=== PATIENT | male | born 1995 | race Two or more races ===

== ENCOUNTER 2020-03-14 13:06 | Emergency (ER) | payer OTHER ==
[~2020-03-14] VITALS: Ht 180.3 cm; Wt 49.9 kg
--- NOTE | 2020-03-14 13:15 | NUR ---
ED Nurse Note: RN asked patient to get into hospital gown and patient refused. Patient states he feels cold. He was wearing shor sleeve T Shirt. RN offered warm blanket, but patient refused to get into gown. Patient arrived here with wheelchair.
--- NOTE | 2020-03-14 13:30 | NUR ---
ED Nurse Note: RN attempted to insert f/c as ordered using 16Fr coude and regular, but RN unable to place it at this time. No bleeding from penile area noted. Jasper Yee. notfied.
--- NOTE | 2020-03-14 13:35 | NUR ---
ED Nurse Note: RN notified Jasper Yee that patient has split urethral opening with swollen, reddened bilateral scortum. Patient states he had catheter before but does not know what happened to it. Patient unable to urinate since last night and called 911. Patient states "I am not sick. I just need catheter" Patient awake, alert, oriented x 4. Regular, unlabored breathing noted.
[2020-03-14] MEDS ORDERED: Omnipaque-300 100ml vial INJ PRN (13:45)
--- NOTE | 2020-03-14 13:58 | Emergency Room Report ---
History of Present Illness General Chief Complaint: Abdominal Pain Source: Patient Present Illness HPI 25 YO Male presents to the ED c/o inability to urinate with 10/10 in severity lower abdominal pain with associated vomiting since this am. Pt. reports being incontinent due to hx of being paraplegic from waist down for unknown amount of time. Pt. poorly cooperative and "doesn't know" a lot of his medical history or ability to describe his current symptoms today. He reports having testicular swelling and pain, he denies penile d/c. Pt. reports having a cyst that required surgery an unknown amount of time ago in the testicle area. Pt. reports his symptoms never resolved. Pt. denies fevers or chills. He denies use of Vogt catheter and reports wearing adult diapers. ROS and HPI are limited due to poor pt. knowledge and cooperation. Allergies: Coded Allergies: No Known Allergies (Unverified , 03/14/20) COVID-19 Screening Contact w/high risk pt: No Experienced COVID-19 symptoms?: No COVID-19 Testing performed [facility] NURSE: Yes COVID-19 Screening: Negative COVID-19 COVID-19 Testing Source: 3 weeks ago Patient History Past Medical History: see triage record Past Surgical History: none Pertinent Family History: none Reviewed Nursing Documentation: PMH: Agreed; PSxH: Agreed Nursing Documentation-PMH Past Medical History: No History, Except For Review of Systems All Other Systems: limited - pt. with pmhx knowledge deficit and poor cooperation Physical Exam Vital Signs Date Time Temp Pulse Resp B/P (MAP) Pulse Ox O2 Delivery O2 Flow Rate FiO2 03/14/20 13:08 100.0 111 16 106/70 (82) 99 Room Air Sp02 EP Interpretation: reviewed, normal General Appearance: alert, GCS 15, non-toxic, mild distress Head: normocephalic, atraumatic Eyes: bilateral eye normal inspection, bilateral eye PERRL ENT: hearing grossly normal, normal voice Neck: full range of motion Respiratory: chest non-tender, lungs clear, normal breath sounds, speaking full sentences Cardiovascular #1: regular rate, rhythm Gastrointestinal: normal bowel sounds, soft, no peritonitis, tenderness - Midline lower abdomen with palpable fullness in the region of the urinary bladder, Rectal: deferred Genitourinary: no CVA tenderness, other - dc visualized from the urethra. Testicles are swollen and erythematous. NO lesions, sores/ blisters. NO swollen tender LAD. cremasteric reflex difficult to assess as pt. is paralyzed from waist down and can only sit. negative phrens sign. Musculoskeletal: back normal, normal range of motion, non-tender Neurologic: alert, oriented x3, sensory intact, responsive, speech normal, other - paralysis from waist down with visible muscle atrophy bilaterally of the lower extremities. Psychiatric: judgement/insight normal, other - Pt. is verbally abusive to staff. He is easily angered. Poorly cooperative in answering questions. Demanding with his expectations and treatments rendered. Skin: no rash Medical Decision Making PA Attestation Dr. Yee is my supervising Physician whom patient management has been discussed with. Diagnostic Impression: Primary Impression: Acute urinary obstruction Additional Impressions: Complicated urinary tract infection Leukocytosis Qualified Codes: D72.829 - Elevated white blood cell count, unspecified ER Course 25 YO Male presents to the ED c/o inability to urinate with 10/10 in severity lower abdominal pain with associated vomiting since this am. Pt. reports being incontinent due to hx of being paraplegic from waist down for unknown amount of time. Pt. poorly cooperative and "doesn't know" a lot of his medical history or ability to describe his current symptoms today. He reports having testicular swelling and pain, he denies penile d/c. Pt. reports having a cyst that required surgery an unknown amount of time ago in the testicle area. Pt. reports his symptoms never resolved. Pt. denies fevers or chills. He denies use of Vogt catheter and reports wearing adult diapers. ROS and HPI are limited due to poor pt. knowledge and cooperation. Ddx considered but are not limited to Diverticulitis, acute appendicitis, diarrhea,UC, PUD, GE, pancreatitis, gallstone, urinary obstruction, testicular torsion, STI, prostatitis or BPH just to name a few Vital signs: PT. TACHYCARDIC otherwise VS are WNL, pt. is afebrile H&PE are most consistent with possible urosepsis secondary to urinary obstruction. Pt. has an anatomically challenged urethra and multiple attempts are unsuccessful in Vogt placement. ORDERS: CBC: Severe leukocytosis WBC 22.5 -CMP: unremarkable -Lipase: 51 -lactic Acid: 1.9 UA: --unable to obtain urine. RN unable to insert Vogt catheters of various sized. Unsuccessful attempts at obtaining urine and relieving bladder. Pt. was very demanding that can insert the Vogt himself. Pt. failed at self catheterization. Urologist consulted Pt. needs to be admitted. -EKG: Pt. refuses -CT Abdomen and Pelvis w. Contrast: Pt. Refuses -Testicular US: ED INTERVENTIONS: -- 30cc/kg bolus of NS IV -- Zosyn IV - Tylenol PO -Consult : Urology. Dr. Duval was notified. DISPOSITION: Pt. demands to leave AMA multiple times. - At this time the patient is requesting to leave AGAINST MEDICAL ADVICE. I believe that this patient has the capacity to make decisions on his own. I discussed with the patient the risks of leaving AMA. Some of these risks include delay in diagnosis and treatment, as well as worsening of symptoms, organ damage, and permanent disability or even . After discussing these risks with the patient and the severity of his current condition with likelyhood of severe sepsis or ,he continues to express his want and intentions to leave AGAINST MEDICAL ADVICE. I encouraged the patient to return at any time, and that he will be welcome here in the emergency department to continue medical management. PT. called a family member and had them come pick him up. Labs Test 03/14/20 13:40 White Blood Count 22.5 K/UL (4.8-10.8) Red Blood Count 5.21 M/UL (4.70-6.10) Hemoglobin 14.1 G/DL (14.2-18.0) Hematocrit 43.3 % (42.0-52.0) Mean Corpuscular Volume 83 FL (80-99) Mean Corpuscular Hemoglobin 27.1 PG (27.0-31.0) Mean Corpuscular Hemoglobin Concent 32.6 G/DL (32.0-36.0) Red Cell Distribution Width 16.0 % (11.6-14.8) Platelet Count 291 K/UL (150-450) Mean Platelet Volume 7.5 FL (6.5-10.1) Neutrophils (%) (Auto) % (45.0-75.0) Lymphocytes (%) (Auto) % (20.0-45.0) Monocytes (%) (Auto) % (1.0-10.0) Eosinophils (%) (Auto) % (0.0-3.0) Basophils (%) (Auto) % (0.0-2.0) Differential Total Cells Counted 100 Neutrophils % (Manual) 68 % (45-75) Lymphocytes % (Manual) 14 % (20-45) Monocytes % (Manual) 10 % (1-10) Eosinophils % (Manual) 1 % (0-3) Basophils % (Manual) 1 % (0-2) Band Neutrophils 6 % (0-8) Platelet Estimate Adequate Platelet Morphology Normal Anisocytosis 1+ Sodium Level 138 MMOL/L (136-145) Potassium Level 3.9 MMOL/L (3.5-5.1) Chloride Level 102 MMOL/L (98-107) Carbon Dioxide Level 22 MMOL/L (21-32) Anion Gap 14 mmol/L (5-15) Blood Urea Nitrogen 12 mg/dL (7-18) Creatinine 1.0 MG/DL (0.55-1.30) Estimat Glomerular Filtration Rate > 60 mL/min (>60) Glucose Level 112 MG/DL (74-106) Lactic Acid Level 1.90 mmol/L (0.4-2.0) Calcium Level 9.4 MG/DL (8.5-10.1) Total Bilirubin 1.2 MG/DL (0.2-1.0) Direct Bilirubin 0.2 MG/DL (0.0-0.3) Aspartate Amino Transf (AST/SGOT) 15 U/L (15-37) Alanine Aminotransferase (ALT/SGPT) 15 U/L (12-78) Alkaline Phosphatase 118 U/L (46-116) Total Creatine Kinase 369 U/L (26-308) Total Protein 8.6 G/DL (6.4-8.2) Albumin 3.5 G/DL (3.4-5.0) Globulin 5.1 g/dL Albumin/Globulin Ratio 0.7 (1.0-2.7) Lipase 52 U/L (73-393) CT/MRI/US Diagnostic Results CT/MRI/US Diagnostic Results : Imaging Test Ordered: US testicular Impression " small right hydrocele and moderate left hydrocele, No acute abnormality of the testes or epididymides. "-Per official radiology report- Please see report for specific details. Last Vital Signs Date Time Temp Pulse Resp B/P (MAP) Pulse Ox O2 Delivery O2 Flow Rate FiO2 03/14/20 13:08 100.0 111 16 106/70 (82) 99 Room Air Disposition: AGAINST MEDICAL ADVICE Condition: Serious - PT. is severly sick, multiple providers attempt to reason pt. into staying. Scripts Ciprofloxacin Hcl* (CIPROFLOXACIN HCL*) 500 Mg Tablet 500 MG ORAL EVERY 12 HOURS for 10 Days, #20 TAB 0 Refills Prov: Nakia Dyer 03/14/20 Nakia Dyer Mar 14, 2020 13:58
--- NOTE | 2020-03-14 14:14 | NUR ---
ED Nurse Note: Patient refused to wear mask.RN explained the importance of wearing mask for safety and patient states "you have mask on". Patient refused EKG/U/S of scortum. Shari Yee notified and came to talk to patient. Patient wants to self-catherize himself. Narcisa.Ricky ordered to provide supplies.
[2020-03-14 14:20] LABS: HEMATOCRIT 43.3 % (42.0-52.0); HEMOGLOBIN 14.1 G/DL (14.2-18.0); MEAN CORPUSCULAR VOLUME 83 FL (80-99); PLATELET COUNT 291 K/UL (150-450); RED BLOOD COUNT 5.21 M/UL (4.70-6.10)
[2020-03-14 14:28] LABS: ANION GAP 14 mmol/L (5-15); BLOOD UREA NITROGEN 12 mg/dL (7-18); CALCIUM 9.4 MG/DL (8.5-10.1); CARBON DIOXIDE 22 MMOL/L (21-32); CHLORIDE 102 MMOL/L (98-107); POTASSIUM 3.9 MMOL/L (3.5-5.1); SODIUM 138 MMOL/L (136-145)
[2020-03-14 14:30] LABS: WHITE BLOOD COUNT 22.5 K/UL (4.8-10.8)
--- NOTE | 2020-03-14 14:30 | NUR ---
ED Nurse Note: RN provided 16Fr loya catheter and patient attempted self-catheterization, but unsuccessful at this time. RN educated patient if he feels resistance he should stop as it can lead to trauma, increased swelling. Offered pain medication for abdominal pain, but patient refused and stating "I just need catheter' in loud voice, appears to be agitated"
[2020-03-14 14:32] VITALS: BP 113/67
[2020-03-14 14:44] LABS: ALANINE AMINOTRANSFERASE 15 U/L (12-78); ALBUMIN 3.5 G/DL (3.4-5.0); ALBUMIN/GLOBULIN RATIO 0.7 (1.0-2.7); ALKALINE PHOSPHATASE 118 U/L (46-116); ASPARTATE AMINO TRANSFERASE 15 U/L (15-37); BILIRUBIN,TOTAL 1.2 MG/DL (0.2-1.0); CREATINE KINASE 369 U/L (26-308)
[2020-03-14 14:45] LABS: BILIRUBIN,DIRECT 0.2 MG/DL (0.0-0.3)
--- NOTE | 2020-03-14 14:45 | NUR ---
ED Nurse Note: Patient attempted to leave facility with IV. Security called and came to bedside. Addendum: 03/14/20 at 1449 by ADRIENNE Jasper Yee notified. Patient states "You guys are taking too long. I am thristy"
--- NOTE | 2020-03-14 14:58 | NUR ---
ED Nurse Note: Patient agreed to have u/s exam. U/S tech at bedside. Patient still refusing EKG at this time. Addendum: 03/14/20 at 1902 by ADRIENNE Patient also refused 2nd blood culture collection. RN explained the necessity of obtaining blood culture , but Patient states 'I need catheter now' in loud voice. Reassured patient. Provided comfort mesures (pillows, blankets). RN given apple juice after confirming with P.A.
[2020-03-14] MEDS ORDERED: MULTI-VITAMIN1 EACH PO (15:20)
[2020-03-14] MEDS ORDERED: NALTREXONE HCL50 MG PO (15:20)
[2020-03-14] MEDS ORDERED: ZYPREXA10 MG ORAL (15:20)
[2020-03-14] MEDS ORDERED: DEPAKOTE ER500 MG ORAL (15:20)
[2020-03-14] MEDS ORDERED: MELATONIN3 M1 ORAL (15:20)
--- NOTE | 2020-03-14 15:40 | NUR ---
ED Nurse Note: Patient refused CT scan. RN asked patient if this RN talk to mom/patient about his condition. Patient states mom does not want to talk to this RN. They were talking on his cell phone in lithuanian earlier.
[2020-03-14] MEDS ORDERED: Piperacillin/Tazobactam 2.25 GM in NS 110 ML IVPB ONE (15:45)
--- NOTE | 2020-03-14 15:46 | NUR ---
Note undone in EDM - 03/14/20 at 1907 by ADRIENNE ED Nurse Note: Patient attempted to self-catherize and bleeding from penile area noted. Patient want to leave the hopsital as he did not get urinary catheter. RN explained that RN attempted to insert urinary catheter twice and unable to establish it at this time. P.A. also aware. Patient threatened this RN that "I gonna pulls out IV. I don't want to be here.' RN explained the infection and patient states 'I don't care. Le me " RN asked for family information, but he does not provide any information. RN called facility and does not have any family information and leather case finisher not available.
--- NOTE | 2020-03-14 15:47 | NUR ---
ED Nurse Note: Patient attempted to do self-catheterization and bleeding from penile area noted. Patient wants to leave the hopsital as he did not get urinary catheter. RN explained that RN attempted to insert urinary catheter twice and unable to establish it at this time. P.A. also aware. Patient threatened this RN that "I gonna pulls out IV. I don't want to be here.' RN explained the infection and patient states 'I don't care." RN asked for family information, but he does not provide any information. RN called facility and talked to Moises and he does not have any family information and rn case manager hospice not available. Addendum: 03/14/20 at 1909 by ADRIENNE Patient attempted self-catherization with size 14Fr.
--- NOTE | 2020-03-14 15:52 | Diagnostic Imaging Report ---
EXAM: US Scrotum CLINICAL HISTORY: PAIN TECHNIQUE: Real-time ultrasound of the scrotum with color Doppler and image documentation. COMPARISON: None FINDINGS: Right testicle: Right testicle measures 4.0 x 3.1 x 1.5 cm. No focal lesion. No torsion. Left testicle: Left testicle measures 3.3 x 3.3 x 1.9 cm. No focal lesion. No torsion. Epididymides: Unremarkable. Scrotum: Small right hydrocele. Moderate left hydrocele. No varicocele. IMPRESSION: 1. Small right hydrocele and moderate left hydrocele. 2. No acute abnormality of the testes or epididymides.
--- NOTE | 2020-03-14 15:55 | NUR ---
ED Nurse Note: Shari Yee came to bedside and talking to patient. Addendum: 03/16/20 at 0720 by ADRIENNE ED Nurse Note: late entry for 03/14/1555- Shari Yee notified that patient refused CT scan. Shariand RN explained/discussed the importancte of CT scan for abdominal pain, but patient refused. Patient remained upset. Patient has been informed about the possible consequences of his decision including delaying in treatment and . Patient remained awake, alert, oriented x4.
--- NOTE | 2020-03-14 16:00 | NUR ---
ED Nurse Note: Dr. Luna came to bedside and talked to patient about his condition.
--- NOTE | 2020-03-14 16:05 | NUR ---
ED Nurse Note: Patient agreed to receive IV antibiotics and fluids at this tme. RN administered medication via left AC. IV remained intact.
[2020-03-14] MEDS ORDERED: CIPROFLOXACIN500 M2 ORAL (16:11)
--- NOTE | 2020-03-14 16:25 | NUR ---
ED Nurse Note: IV alarmed and went to patient's room. RN found patient in wheelchair with all his belongings, trying to leave @ 1620. Patient reported he lowered the sided rails and moved himself in wheelchair. Patient states "I don't want to wait. I don't want to stay here. I am leaving" RN attempted to talk to patient the importance of receiving treatment and told patient of possible risks and consequences of his leaving the hospital with dysuria and infection. Patient wanted this RN to try to insert loya cather one more time and RN attempted to insert loya catheter, coude 18Fr with patient's permission, but unsuccessful at this time. Patient tolerated the procedure without pain. No bleeding from urethral opening noted. RN removed IV from left arm per patient's request and cather remained intact. Applied clean, dry dressing.
[2020-03-14 16:42] VITALS: BP 132/74
--- NOTE | 2020-03-14 16:42 | NUR ---
ED Nurse Note: RN talked to patient again and informed him that urologist will see him for loya catheter insertion and if he is willing to stay and wait. RN took VS and Dr. Luna notified of temperature.
[2020-03-14] MEDS ORDERED: Acetaminophen 500mg (ES) tab ORAL ONE (16:45)
--- NOTE | 2020-03-14 16:55 | NUR ---
RN discussed s/s of worsening infection. D/C instruction and prescription given to patient.
--- NOTE | 2020-03-14 16:55 | NUR ---
Patient was awake, alert, oriented x 4.
--- NOTE | 2020-03-14 16:55 | NUR ---
ED Nurse Note: Erica RN informed this RN that patient found leaving the emergency room in wheelchair. RN found patient in front of the lobby. Patient states "I don't want to wait, takng too long" Per patient, patient contacted his mom. Her boyfriend (Dwain Duffy) here taking patient back to boarding care. Shari Yee notified patient leaving the hospital against medical advice. Patient informed again that patient has serious infection and leaving the hospital against medical advice will cause risk of serious complication, including . Patient verbalized understanding of it. Patient is leaving the hospital with Mr. Duffy with all his belongings.
--- NOTE | 2020-03-14 16:56 | NUR ---
ED Nurse Note: Patient signed AMA form and filed in chart.
== END 2020-03-14 16:55 | disposition left against medical advice (07) ==
LOC: EDBD → EMR 13:20
DX: N13.9 Obstructive and reflux uropathy, unspecified (principal); N39.0 Urinary tract infection, site not specified; D72.829 Elevated white blood cell count, unspecified; N43.3 Hydrocele, unspecified; G83.9 Paralytic syndrome, unspecified
CPT/HCPCS: 36415; 76870; 80053; 82248; 82550; 83605; 83690; 85007; 85025; 87040; 96361; 96365; 96375; J2405; J2543; Z7502; 99284

== ENCOUNTER 2020-03-15 07:20 | Emergency (ER) | payer OTHER ==
[~2020-03-15] VITALS: Ht 172.7 cm; Wt 68.0 kg
[~2020-03-15 07:20] MED LIST: CIPROFLOXACIN500 M2 ORAL; DEPAKOTE ER500 MG ORAL; MELATONIN3 M1 ORAL; MULTI-VITAMIN1 EACH PO; NALTREXONE HCL50 MG PO; ZYPREXA10 MG ORAL
[2020-03-15 07:30] VITALS: BP 125/79
[2020-03-15] MEDS ORDERED: Cefepime HCl 1 GM in D5W 55 ML IVPB ONE (07:45)
--- NOTE | 2020-03-15 07:54 | Emergency Room Report ---
History of Present Illness General Chief Complaint: Abdominal Pain Source: Patient Present Illness HPI 25-year-old male with a history of paraplegia here with lower abdominal pain and scrotal and penile swelling. Patient was here yesterday for the same complaints. He was found to have an acute urinary obstruction. Multiple attempts at catheterization were unsuccessful. Patient tried self catheterizations and was also unsuccessful. Patient was found to have a market leukocytosis as well. Urology was called for possible placement of a suprapubic catheter. However the patient became very ornery and angry and began to become verbally abusive to staff and then signed out AGAINST MEDICAL ADVICE. He was given a prescription for ciprofloxacin which he says he did not fill. Patient said yesterday that he was going to another hospital. However he went home and says that the swelling in his testicles and penis became more severe and the patient began having worsening lower abdominal pain. Has not been able to urinate in several days. Says he has had this before and is usually able to self catheterize however has been unsuccessful. Denies headaches, vision changes, fevers, chills, chest pain, palpitation, shortness of breath, back pain, other abdominal pain, diarrhea. Has felt nauseous and vomited yesterday but not today. Yesterday the patient received a testicular ultrasound study which showed bilateral hydroceles but otherwise unremarkable Allergies: Coded Allergies: No Known Allergies (Unverified , 03/14/20) COVID-19 Screening Contact w/high risk pt: No Experienced COVID-19 symptoms?: No COVID-19 Testing performed CLERICAL ASSISTANT: No Nursing Documentation-[facility] Past Medical History: No History, Except For Review of Systems All Other Systems: negative except mentioned in HPI Physical Exam Vital Signs Date Time Temp Pulse Resp B/P (MAP) Pulse Ox O2 Delivery O2 Flow Rate FiO2 03/15/20 07:16 97.2 72 18 134/86 (102) 98 Room Air Sp02 EP Interpretation: reviewed, normal General Appearance: no apparent distress, alert, GCS 15, non-toxic Head: normocephalic, atraumatic Eyes: bilateral eye normal inspection, bilateral eye PERRL ENT: hearing grossly normal, normal pharynx, no angioedema, normal voice Neck: full range of motion, supple/symm/no masses Respiratory: chest non-tender, lungs clear, normal breath sounds, speaking full sentences Cardiovascular #1: regular rate, rhythm, no edema Cardiovascular #2: 2+ carotid (R), 2+ carotid (L), 2+ radial (R), 2+ radial (L) , 2+ dorsalis pedis (R), 2+ dorsalis pedis (L) Gastrointestinal: normal bowel sounds, non-distended, no guarding, no rebound, other - Lower abdominal and suprapubic distention and mild tenderness on palpation Rectal: deferred Genitourinary: no CVA tenderness, other - Market testicular swelling bilaterally more prominent on the left with skin weeping. Edema of the penis diffusely Musculoskeletal: back normal, calf tenderness, other - Chronic paraplegic with lower extremity muscle wasting Neurologic: alert, motor strength/tone normal, oriented x3, sensory intact, responsive, speech normal Psychiatric: judgement/insight normal, memory normal, mood/affect normal, no suicidal/homicidal ideation Reflexes: 3+ bicep (R), 3+ bicep (L), 3+ tricep (R), 3+ tricep (L), 3+ knee (R) , 3+ knee (L) Lymphatic: no adenopathy Medical Decision Making Diagnostic Impression: Primary Impression: Sepsis Additional Impressions: Urinary retention Urethral fistula ER Course EXAM: XR Chest, 1 View CLINICAL HISTORY: CP TECHNIQUE: Frontal view of the chest. COMPARISON: No relevant prior studies available. FINDINGS: Lungs: Hypoventilatory lungs. Bibasilar lung atelectasis. Lungs otherwise clear. Pleural space: Unremarkable. No pneumothorax. Heart: Unremarkable. No cardiomegaly. Mediastinum: Unremarkable. Bones/joints: Unremarkable. Upper abdomen: IVC filter. IMPRESSION: Hypoventilatory lungs. Bibasilar lung atelectasis. Lungs otherwise clear. Total critical care time: Approximately 45 minutes Due to a high probability of clinically significant, life threatening deterioration, the patient required the highest level of preparedness to intervene emergently and I personally spent this critical care time directly and personally managing the patient. This critical care time included obtaining a history, examining the patient, pulse oximetry, ordering and reviewing studies , ordering treatments, evaluating response to treatment and updating management plan as needed, frequent reassessment and discussion with other providers as well as arranging for ultimate disposition. This critical to care time was performed to assess and manage the high probability of life-threatening deterioration that could result in multiorgan failure. This critical care time is separate from the separately billable procedures and treating other patients. 25-year-old male here with lower abdominal pain. Patient had a fever on arrival and received Tylenol. He received 30 cc/kg of a fluid bolus on arrival as well. Blood cultures obtained. However urine sample was not able to be obtained due to inability to pass catheters. CT abdomen pelvis revealed possible fistula from the prostatic urethra draining to the scrotum. Attempts to reach the on-call urologist many times were unsuccessful over the course of several hours. I spoke to the admitting team here in the [facility] who agreed that the patient will need a complex urologic procedure performed. Eventually we were able to speak to [facility] who will accept the patient with an ER to ER transfer. Blood cultures obtained. Patient received cefepime in the emergency department. He remained hemodynamically stable and received several doses of pain medication with good resolution of his pain. Patient to be transferred. Signed out to oncoming physician. Last Vital Signs Date Time Temp Pulse Resp B/P (MAP) Pulse Ox O2 Delivery O2 Flow Rate FiO2 03/15/20 07:16 97.2 72 18 134/86 (102) 98 Room Air Wilbert Knapp M.D. Mar 15, 2020 07:54
[2020-03-15] MEDS ORDERED: Acetaminophen 500mg (ES) tab ORAL ONE (08:00)
[2020-03-15] MEDS ORDERED: Omnipaque-300 100ml vial INJ PRN (08:15)
[2020-03-15 08:18] LABS: HEMATOCRIT 41.8 % (42.0-52.0); HEMOGLOBIN 14.2 G/DL (14.2-18.0); MEAN CORPUSCULAR VOLUME 81 FL (80-99); PLATELET COUNT 248 K/UL (150-450); RED BLOOD COUNT 5.15 M/UL (4.70-6.10); RED CELL DISTRIBUTION WIDTH 15.7 % (11.6-14.8); WHITE BLOOD COUNT 12.4 K/UL (4.8-10.8)
[2020-03-15 08:26] LABS: ANION GAP 14 mmol/L (5-15); BLOOD UREA NITROGEN 26 mg/dL (7-18); CALCIUM 8.8 MG/DL (8.5-10.1); CARBON DIOXIDE 21 MMOL/L (21-32); CHLORIDE 99 MMOL/L (98-107); CREATININE 2.8 MG/DL (0.55-1.30); POTASSIUM 3.6 MMOL/L (3.5-5.1); SODIUM 134 MMOL/L (136-145)
[2020-03-15] MEDS ORDERED: Morphine Sulfate 4mg/ml Inj (IV USE ONLY) IVP ONE ×3 (08:30→14:45)
[2020-03-15] MEDS ORDERED: Acetaminophen 650 MG SUPP RECTAL ONE (08:30)
[2020-03-15] MEDS ORDERED: Lidocaine HCl 2% Jelly 6ml Tube TOPIC ONE ×2 (08:36→08:45)
[2020-03-15 08:40] LABS: ALANINE AMINOTRANSFERASE 20 U/L (12-78); ALBUMIN 3.2 G/DL (3.4-5.0); ALBUMIN/GLOBULIN RATIO 0.6 (1.0-2.7); ALKALINE PHOSPHATASE 111 U/L (46-116); ASPARTATE AMINO TRANSFERASE 26 U/L (15-37); BILIRUBIN,TOTAL 1.4 MG/DL (0.2-1.0); CKMB 1.9 NG/ML (0.0-3.6)
[2020-03-15 08:41] LABS: BILIRUBIN,DIRECT 0.3 MG/DL (0.0-0.3)
--- NOTE | 2020-03-15 09:04 | Diagnostic Imaging Report ---
EXAM: XR Chest, 1 View CLINICAL HISTORY: CP TECHNIQUE: Frontal view of the chest. COMPARISON: No relevant prior studies available. FINDINGS: Lungs: Hypoventilatory lungs. Bibasilar lung atelectasis. Lungs otherwise clear. Pleural space: Unremarkable. No pneumothorax. Heart: Unremarkable. No cardiomegaly. Mediastinum: Unremarkable. Bones/joints: Unremarkable. Upper abdomen: IVC filter. IMPRESSION: Hypoventilatory lungs. Bibasilar lung atelectasis. Lungs otherwise clear.
[2020-03-15 09:30] VITALS: BP 128/72
--- NOTE | 2020-03-15 11:17 | Diagnostic Imaging Report ---
EXAM: CT Chest Without Intravenous Contrast CLINICAL HISTORY: PAIN TECHNIQUE: Axial computed tomography images of the chest without intravenous contrast. CTDI is 5.6 mGy and DLP is 467.1 mGy-cm. One or more of the following dose reduction techniques were used: automated exposure control, adjustment of the mA and/or kV according to patient size, use of iterative reconstruction technique. COMPARISON: Chest x-ray today FINDINGS: Lungs: Linear atelectasis at the lung bases. Lungs otherwise clear. Pleural space: Unremarkable. No pneumothorax. No significant effusion. Heart: Unremarkable. No cardiomegaly. No significant pericardial effusion. Bones/joints: Unremarkable. No acute fracture. No dislocation. Soft tissues: Unremarkable. Vasculature: Unremarkable. No thoracic aortic aneurysm. Lymph nodes: Unremarkable. No enlarged lymph nodes. IMPRESSION: No acute findings in the chest. EXAM: CT Abdomen and Pelvis Without Intravenous Contrast CLINICAL HISTORY: PAIN TECHNIQUE: Axial computed tomography images of the abdomen and pelvis without intravenous contrast. CTDI is 5.6 mGy and DLP is 467.1 mGy-cm. One or more of the following dose reduction techniques were used: automated exposure control, adjustment of the mA and/or kV according to patient size, use of iterative reconstruction technique. COMPARISON: No relevant prior studies available. FINDINGS: Lung bases: Unremarkable. No mass. No consolidation. ABDOMEN: Liver: Unremarkable. Gallbladder and bile ducts: Unremarkable. No calcified stones. No ductal dilation. Pancreas: Unremarkable. No ductal dilation. Spleen: Unremarkable. No splenomegaly. Adrenals: Unremarkable. No mass. Kidneys and ureters: Mild bilateral hydronephrosis due to overly distended urinary bladder. Stomach and bowel: Unremarkable. No obstruction. No mucosal thickening. PELVIS: Appendix: Normal appendix. Bladder: [place] distended urinary bladder.See below. Reproductive: There is a dilated prostatic and proximal penile urethra. There is large fluid collection at the base of the penis extending into the left scrotum that appears to connect to the proximal urethra, worrisome for fistula. Soft tissue induration of the scrotum and bilateral groin and anterior pelvic wall. ABDOMEN and PELVIS: Intraperitoneal space: Unremarkable. No free air. No significant fluid collection. Bones/joints: Dystrophic calcification left ischial tuberosity. Fusion of bilateral SI joints. No acute fracture. No dislocation. Soft tissues: Left buttocks subcutaneous ulceration extending to the ischial tuberosity. 4.0 x 5.7 cm soft tissue densities/phlegmonous changes at the ischial tuberosity. Right lateral abdominal wall subcutaneous metallic fragment. Vasculature: IVC filter. No abdominal aortic aneurysm. Lymph nodes: Unremarkable. No enlarged lymph nodes. IMPRESSION: 1. There is a dilated prostatic and proximal penile urethra. There is large fluid collection at the base of the penis extending into the left scrotum that appears to connect to the proximal urethra, worrisome for fistula. Soft tissue induration of the scrotum and bilateral groin and anterior pelvic wall. 2. Mild bilateral hydronephrosis due to overly distended urinary bladder. 3. Left buttocks subcutaneous ulceration extending to the ischial tuberosity. 4.0 x 5.7 cm soft tissue densities/phlegmonous changes at the ischial tuberosity. 4. Dystrophic calcification left ischial tuberosity. Cannot exclude chronic osteomyelitis. 5. Right lateral abdominal wall subcutaneous metallic fragment. <MYCVCSECTION> Communications: 03/15/20 11:14 Call Doctor Regarding Above results, called Aria PITTS on 03/15 11:13 (-07:00)
[2020-03-15 11:30] VITALS: BP 129/79
[2020-03-15 13:44] VITALS: BP 131/74
[2020-03-15] MEDS ORDERED: Morphine Sulfate 4mg/ml Inj (IV USE ONLY) ONE (14:35)
[2020-03-15 18:20] VITALS: BP 127/79
== END 2020-03-15 18:20 | disposition home or self-care (01) ==
LOC: EDBD 07:20 → EMR 08:04 → EDBD 08:04 → EMR 18:20
DX: A41.9 Sepsis, unspecified organism (principal); R33.9 Retention of urine, unspecified; N36.0 Urethral fistula; D72.829 Elevated white blood cell count, unspecified; J98.11 Atelectasis
CPT/HCPCS: 36415; 71045; 71250; 74176; 74177; 80053; 82248; 82553; 83605; 85007; 85025; 87040; 96361; 96365; 96375; 96376; J0692; J2270; J2405; J7030; Q9965; S0028; U0002; Z7502; 99291

== ENCOUNTER 2020-03-21 19:14 | Inpatient (IN) | payer OTHER ==
[~2020-03-21] VITALS: Ht 180.3 cm; Wt 61.3 kg
--- NOTE | 2020-03-21 18:55 | Emergency Room Report ---
History of Present Illness General Chief Complaint: Abdominal Pain Source: Patient Present Illness HPI Patient is a 25-year-old male with past medical history of paraplegia and neurogenic bladder s/p suprapubic indwelling catheter brought in by ambulance from [facility] for complaint of left lower quadrant abdominal pain, foul-smelling urine, and scrotal pain. He states that he has been treated with antibiotics for urinary tract infection over the past 1 week, however his symptoms are not improving. He noticed pus coming out of the left scrotal area which has not been getting better with the outpatient antibiotics. Denies fevers, chills, nausea, vomiting, diarrhea, melena, hematochezia, cough, chest pain or weakness The patient's symptoms were gradual onset, severity was moderate, duration since 7 days. Quality: Bulging Past medical history: Paraplegia, neurogenic bladder Past surgical history: Suprapubic indwelling catheter Smoking: Denies Alcohol use: Denies Drug use: Denies Review of systems: CONST: No fevers or chills, No night sweats PULMONARY: No productive cough, No shortness of breath CARDIAC: No chest pain, No palpitations GI: No vomiting, No diarrhea , No melena_or_BRBPR : No dysuria, No hematuria, No discharge NEURO: No new_focal_weakness_or_numbness, No confusion, No vision changes 14 point Review of Systems is otherwise negative except per HPI Physical Exam: GENERAL: Awake_alert_ nontoxic, no acute distress Spo2 98% on RA -normal EYES: Extraocular muscles are intact. Conjunctivae clear. Lids without swelling ENT: External nose and ear normal_in_appearance. Oropharynx clear. Head_ atraumatic, Moist_oral_mucosa NECK: No JVD. No meningismus. No thyromegaly. Supple. Trachea midline No petechia. No purpura. RESP: Normal respiratory effort. Symmetric rise. No stridor. Clear_to_ auscultation_No_rales_No_wheezes CARDIAC: Regular rate and regular rhytm. No_significant pedal edema. ABDOMEN: Soft. Mild left lower quadrant tenderness to palpation with undifferentiated mass. Non-peritoneal. Negative Ruffin's. Negative rebound. No CVA tenderness to palpation bilaterally. Indwelling suprapubic catheter. Ostomy is clean, dry, intact. No surrounding cellulitis or drainage. exam performed with RN dumpster driver at bedside There is weeping to the left scrotum with serosanguineous drainage. No palpable crepitus. MSK: Normal muscle tone, without rigidity. Extremities without asymmetric deformity or swelling. SKIN: Warm and dry. No visible cyanosis or pallor NEUROLOGIC: Alert, oriented x3. To the bilateral upper extremity. He is a paraplegic. Motor_and_sensation_grossly_intact 0 out of 5 strength bilateral lower extremity Psych: Normal mood and affect, normal judgment and insight - COORDINATION OF CARE Case was discussed with: Patient , Patient's Physician Any labs and imaging that were ordered were interpreted as part of the medical decision making: I did review previous medical records. CT scan from 03/15/2019 was notable for several complicated findings. There was a dilated prostatic and proximal penile urethra. There is a large fluid collection at the base of the penis extending into the left scrotum that appeared to connect to the proximal urethra worrisome for a fistula. Was also noted to have bilateral hydronephrosis and possible if she will tuberosity abscess/ulceration. Patient was transferred to [facility] for higher level of care. MEDICAL DECISION MAKING: Differential diagnosis includes sepsis / severe sepsis, scrotal cellulitis, nephrolithiasis, ureterolithiasis, pyelonephritis, diverticulitis, complicated UTI, pneumonia , viral syndrome, among others. Vitals show patient is afebrile. Stable blood pressure. Patient abdominal exam shows chronic suprapubic indwelling Loya catheter. The urine coming out of the bag is heavily sedimented. examination shows scrotal cellulitis. There is weeping of the left scrotal region that is concerning for abscess versus less likely Yamini's gangrene. There is no palpable crepitus on exam. He is hemodynamically stable at this point in time. No pain out of proportion, however physical examination is unreliable as patient is a paraplegic. UA shows positive bacteria, leukocytes, and heavy sediment. Labs shows leukocytosis of 15.5. It was 12.4 on the previous discharge. Pt also noted to be newly anemic. Hemoglobin today is 11.9. Hemoglobin last recorded at 14.2 earlier this week. He is also noted to have a thrombocytosis of 421. Creatinine today is better than it has been previously. It is 1.4. Previous creatinine on 03/15/2020 was 2.8. CXR shows no acute disease. CT abd/pelvis shows suprapubic bladder catheter noted with its tip in the distal right ureter causing right hydronephrosis and right hydroureter. Furthermore there are inflammatory changes about the lower anterior abdominal wall in the left lower quadrant that appear to be an abscess measuring 5.3 x 1.5. There is furthermore extensive inflammation surrounding the left hemiscrotum with a prominent abscess collection the size of 3.1 x 2.2 x 2.8 cm prominent abscess inferiorly. No subcutaneous emphysema suggestive of fourniere 's gangrene. US shows large scrotal abscess. Sepsis bundle initiated on arrival. Blood cultures, lactate drawn. Patient was given 30 cc/kg IV fluids by bolus. Empiric antibiotics were started including vancomycin, clindamycin, and Zosyn.. I also spoke with our Urology computer consultant, Dr. Adames who agrees to see and evaluate the patient. For now, recommends transfer to [facility] for higher level of care as he is their surgical patient. 2049: Attempted to call [facility] for higher level of care. ED is at capacity. 2054: Attempted to call [facility] for higher level of care. ED is at capacity. Pt informed of delay of care. Will continue to try for [facility] as this is where his procedure was performed. 2104: Attempted to call [facility] again for higher level of care. I spoke with Juli who has requested that we fax all labs, imaging, and notes. 2131: Patient is up and out of bed about to rip out his IVs. He is upset because he has been told that he cannot eat anything by mouth and his mother brought him [employer] which he cannot eat. I have spoken with his mother at bedside Donna ([phone]) and explained the severity of the situation. She spoke with patient who agrees to further treatment and transfer to facility for higher level of care. 2144: Spoke with Dr. Walt Salgado (Urology at [facility]) and discussed CT findings with him. He is very familiar with the patient. States that in regards to the suprapubic bladder catheter placement, that urology here should be able to handle the repositioning. Recommends deflating the balloon and pulling it back. Recommends general surgery VS IR for his abdominal wall abscess. Dr Salgado also states that unfortunately, [facility] cannot accept the patient at this time because they are at capacity. Recommends [facility] facilities for higher level of care. In the mean time, Dr Adames arrived bedside to I+D the L scrotal abscess and was successful. Does not feel that exam is consistent with fourniere's. He was also able to reposition the suprapubic loya. 2300: Spoke with [facility] transfer line who states they are at capacity. Care will be endorsed to the oncoming ER physician Dr. Wilbert Knapp pending possible transfer. - CRITICAL CARE STATEMENT - Critical care performed 75 minutes Time is exclusive of separately billable procedures. Time includes: direct patient care, patient reassessment, coordination of patient care, review of patient's medical records, medical consultation, family consultation regarding treatment decisions and documentation of patient care. Organ systems at risk: Cardiac / Circulatory / Skin / Allergies: Coded Allergies: No Known Allergies (Unverified , 03/14/20) COVID-19 Screening Contact w/high risk pt: No Experienced COVID-19 symptoms?: No COVID-19 Testing performed BRIDGE INSPECTOR: No Nursing Documentation-[facility] Past Medical History: No History, Except For History Of Psychiatric Problem: Yes - schizophrenia Physical Exam Vital Signs Date Time Temp Pulse Resp B/P (MAP) Pulse Ox O2 Delivery O2 Flow Rate FiO2 03/21/20 18:37 98.8 72 18 132/80 (97) 98 Room Air Sp02 EP Interpretation: reviewed, normal Medical Decision Making Diagnostic Impression: Primary Impression: Scrotal abscess Additional Impressions: Abdominal abscess Cellulitis of scrotum Complicated UTI (urinary tract infection) Fistula Paraplegia Hydronephrosis Hydroureter Suprapubic catheter dysfunction CKD (chronic kidney disease) Hydrocele EKG Diagnostic Results KARLEY Scribe Jared 12-lead EKG (interpreted by me) Time: 3 Indication: Rhythm analysis Tracing visualized and Interpreted by me. Rhythm: Normal sinus rhythm Rate: 95 bpm QTc: 444 Morphology: No_significant_ST_elevations_or_depressions, No STEMI Impression: Normal_sinus_rhythm_without_significant_abnormality Rhythm Strip Diag. Results Rhythm Strip Time: 20:13 EP Interpretation: yes Rate: 99 Rhythm: NSR, no PVC's, no ectopy Chest X-Ray Diagnostic Results Chest X-Ray Diagnostic Results : PA Scribe Text Chest X-Ray: Views: 1 view(s) Indication: Sepsis Findings: Normal heart size. Mediastinum normal. No infiltrate. Impression: NAD The X-ray(s) were independently viewed and interpreted contemporaneously Electronically signed by Manjula israel, CT/MRI/US Diagnostic Results CT/MRI/US Diagnostic Results : Impression CT Abdomen Pelvis w/Contrast EXAM: CT Abdomen and Pelvis With Intravenous Contrast CLINICAL HISTORY: ABSCESS TECHNIQUE: Axial computed tomography images of the abdomen and pelvis with intravenous contrast. CTDI is 9.80 mGy and DLP is 341.30 mGy-cm. One or more of the following dose reduction techniques were used: automated exposure control, adjustment of the mA and/or kV according to patient size, use of iterative reconstruction technique. COMPARISON: 03/15/2020. FINDINGS: Lung bases: Scarring versus atelectasis posterior medially at the right lung base. Heart: Heart is normal in size. Mediastinum: Small hiatal hernia. Probable distal esophagitis. ABDOMEN: Liver: Diffuse fatty infiltration of the liver is noted with fatty sparing about the round ligament. The liver and the spleen enhance uniformly. Gallbladder and bile ducts: The gallbladder is in a semi-contracted state. No calcified stones. No ductal dilation. Pancreas: See below. Spleen: See above. Adrenals: The adrenal glands, the head, body, tail of the pancreas are unremarkable per Kidneys and ureters: Both kidneys are shown to excrete contrast bilaterally, left kidney more so than the right kidney. Moderate right hydronephrosis. Right suprapubic bladder catheter is noted in place with tip located within the distal right ureter causing obstruction of the right ureter and right hydronephrosis. Left kidney is unremarkable without hydronephrosis. Stomach and bowel: Presumed ingested material in the stomach. Moderate quantity of stool throughout the colon. No evidence of bowel obstruction could No evidence of bowel obstruction. Diverticulosis without diverticulitis appeared PELVIS: Appendix: The appendix is seen on axial image 59 and is unremarkable. Bladder: Unremarkable. No mass. Reproductive: Diffuse wall thickening of the left scrotum. At the inferior aspect of the left scrotum there is suggestion of a 3.1 x 2.2 x 2.8 cm abscess collection. Clinical correlation is advised. ABDOMEN and PELVIS: Intraperitoneal space: Unremarkable. No free air. No significant fluid collection. Bones/joints: Mild to moderate osteoarthritic changes about the sacroiliac joints. Alignment of the thoracolumbar spine is unremarkable. The sacrum and coccyx are unremarkable. No acute fracture. Soft tissues: There is extensive stranding about the lower anterior abdominal wall particularly left of midline where there is a 5.3 x 1.5 cm subcutaneous fluid collection. Cellulitis and abscess collection cannot be excluded and clinical correlation is advised. Vasculature: IVC filter is noted in place. Flow is demonstrated within the celiac, SMA, the renal arteries, and ARMANI. No abdominal aortic aneurysm. Lymph nodes: Unremarkable. No enlarged lymph nodes. IMPRESSION: 1. There is a suprapubic bladder catheter noted in place with its tip located in the distal right ureter causing right hydronephrosis and right hydroureter. 2. Inflammatory changes about the lower anterior abdominal wall particularly left of midline with there appears to be an abscess collection. 3. Extensive inflammation surrounding the left hemiscrotum with an prominent abscess collection suggested inferiorly. Clinical correlation is advised. <MYCVCSECTION> Communications: 03/21/20 20:38 Call Doctor Regarding Above results, called NEGRA PITTS on 03/21 20:38 (-07:00) Dictated By: Uriel Altamirano M.D. US Testicular Scrotum EXAM: US Scrotum CLINICAL HISTORY: PAIN TECHNIQUE: Real-time ultrasound of the scrotum with color Doppler and image documentation. COMPARISON: 03/14/2020. FINDINGS: Right testicle: The right testicle measures 3.2 x 1.7 x 2.5 cm. No intrinsic testicular abnormalities. Flow within the testicles. No torsion. Left testicle: Left testicle measures 3.7 x 1.7 x 2.8 cm. Epididymides: Bilateral epididymides are unremarkable. Scrotum: Small right hydroceles. There is diffuse are scrotal wall thickening with intrascrotal fluid collection inferior to the penis in the area of the raphae septum. Increased vascularity is noted. Lymph nodes: Bilateral inguinal lymph nodes which appear prominent. Other findings: Findings are worrisome for abscess collection. Early Yamini's gangrene cannot be excluded. IMPRESSION: 1. Findings most suggestive of abscess collection within the scrotum posterior and inferior to the penis. Clinical correlation is advised to 2. Early Yamini's gangrene cannot be excluded. 3. Flow to both testicles noted. 4. No intrinsic testicular abnormality is noted. 5. Prominent inguinal lymph nodes. 6. Small right hydrocele. Reevaluation Time: 20:14 Last Vital Signs Date Time Temp Pulse Resp B/P (MAP) Pulse Ox O2 Delivery O2 Flow Rate FiO2 03/21/20 18:37 98.8 72 18 132/80 (97) 98 Room Air Status: improved Admit Decision Time: 22:00 Condition: Stable - Care signed out to Manjula Powers D.O. Mar 21, 2020 18:55
[~2020-03-21 19:14] MED LIST changes: +Clindamycin 600mg 50 ML IVPB ONE; +Omnipaque-300 100ml vial INJ PRN; +Piperacillin/Tazobactam 3.375 GM in NS 110 ML IVPB ONE; +Vancomycin 1 GM in NS 275 ML IV ONE
[2020-03-21 19:15] VITALS: BP 114/61
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
[2020-03-21 19:19] LABS: BILIRUBIN, URINE NEGATIVE (NEGATIVE); COLOR,URINE AMBER; GLUCOSE, URINE (UA) NEGATIVE (NEGATIVE); KETONES,URINE 1+ (NEGATIVE); LEUKOCYTE ESTERASE ,URINE 3+ (NEGATIVE); NITRITE,URINE NEGATIVE (NEGATIVE); PH,URINE 6 (4.5-8.0); PROTEIN,URINE 3+ (NEGATIVE); UROBILINOGEN,URINE NORMAL MG/DL (0.0-1.0)
[2020-03-21 19:20] LABS: BASOPHILS % (AUTO) 1.3 % (0.0-2.0); EOSINOPHILS % (AUTO) 1.5 % (0.0-3.0); HEMATOCRIT 35.1 % (42.0-52.0); HEMOGLOBIN 11.9 G/DL (14.2-18.0); LYMPHOCYTES % (AUTO) 23.3 % (20.0-45.0); MEAN CORPUSCULAR VOLUME 83 FL (80-99); MONOCYTES % (AUTO) 10.4 % (1.0-10.0); NEUTROPHILS % (AUTO) 63.6 % (45.0-75.0); PLATELET COUNT 421 K/UL (150-450); RED BLOOD COUNT 4.23 M/UL (4.70-6.10); RED CELL DISTRIBUTION WIDTH 16.8 % (11.6-14.8); WHITE BLOOD COUNT 15.5 K/UL (4.8-10.8)
[2020-03-21 19:21] LABS: APPEARANCE,URINE VERY CLOUDY
[2020-03-21 19:27] LABS: INR 1.2 (0.9-1.1)
[2020-03-21 19:35] LABS: ANION GAP 10 mmol/L (5-15); BLOOD UREA NITROGEN 16 mg/dL (7-18); CALCIUM 8.3 MG/DL (8.5-10.1); CARBON DIOXIDE 27 MMOL/L (21-32); CHLORIDE 105 MMOL/L (98-107); CREATININE 1.4 MG/DL (0.55-1.30); POTASSIUM 4.5 MMOL/L (3.5-5.1); SODIUM 141 MMOL/L (136-145)
[2020-03-21 19:47] LABS: ALANINE AMINOTRANSFERASE 31 U/L (12-78); ALBUMIN 2.7 G/DL (3.4-5.0); ALBUMIN/GLOBULIN RATIO 0.6 (1.0-2.7); ALKALINE PHOSPHATASE 98 U/L (46-116); ASPARTATE AMINO TRANSFERASE 16 U/L (15-37); BILIRUBIN,TOTAL 0.3 MG/DL (0.2-1.0); CKMB 0.8 NG/ML (0.0-3.6); PHOSPHORUS 4.5 MG/DL (2.5-4.9)
--- NOTE | 2020-03-21 19:50 | NUR ---
ED Nurse Note: Patient taken to CT.
--- NOTE | 2020-03-21 20:23 | Diagnostic Imaging Report ---
EXAM: XR Chest, 1 View CLINICAL HISTORY: COUGH TECHNIQUE: Frontal view of the chest. COMPARISON: 03/15/2020. FINDINGS: Lungs: The lungs are well aerated. No consolidative changes. Pleural space: No pleural effusions. No pneumothorax. Heart: Cardiomediastinal silhouette unremarkable. Mediastinum: See above. Bones/joints: Ribs are unremarkable. IMPRESSION: No active disease, unchanged.
--- NOTE | 2020-03-21 20:34 | Diagnostic Imaging Report ---
EXAM: CT Abdomen and Pelvis With Intravenous Contrast CLINICAL HISTORY: ABSCESS TECHNIQUE: Axial computed tomography images of the abdomen and pelvis with intravenous contrast. CTDI is 9.80 mGy and DLP is 341.30 mGy-cm. One or more of the following dose reduction techniques were used: automated exposure control, adjustment of the mA and/or kV according to patient size, use of iterative reconstruction technique. COMPARISON: 03/15/2020. FINDINGS: Lung bases: Scarring versus atelectasis posterior medially at the right lung base. Heart: Heart is normal in size. Mediastinum: Small hiatal hernia. Probable distal esophagitis. ABDOMEN: Liver: Diffuse fatty infiltration of the liver is noted with fatty sparing about the round ligament. The liver and the spleen enhance uniformly. Gallbladder and bile ducts: The gallbladder is in a semi-contracted state. No calcified stones. No ductal dilation. Pancreas: See below. Spleen: See above. Adrenals: The adrenal glands, the head, body, tail of the pancreas are unremarkable per Kidneys and ureters: Both kidneys are shown to excrete contrast bilaterally, left kidney more so than the right kidney. Moderate right hydronephrosis. Right suprapubic bladder catheter is noted in place with tip located within the distal right ureter causing obstruction of the right ureter and right hydronephrosis. Left kidney is unremarkable without hydronephrosis. Stomach and bowel: Presumed ingested material in the stomach. Moderate quantity of stool throughout the colon. No evidence of bowel obstruction could No evidence of bowel obstruction. Diverticulosis without diverticulitis appeared PELVIS: Appendix: The appendix is seen on axial image 59 and is unremarkable. Bladder: Unremarkable. No mass. Reproductive: Diffuse wall thickening of the left scrotum. At the inferior aspect of the left scrotum there is suggestion of a 3.1 x 2.2 x 2.8 cm abscess collection. Clinical correlation is advised. ABDOMEN and PELVIS: Intraperitoneal space: Unremarkable. No free air. No significant fluid collection. Bones/joints: Mild to moderate osteoarthritic changes about the sacroiliac joints. Alignment of the thoracolumbar spine is unremarkable. The sacrum and coccyx are unremarkable. No acute fracture. Soft tissues: There is extensive stranding about the lower anterior abdominal wall particularly left of midline where there is a 5.3 x 1.5 cm subcutaneous fluid collection. Cellulitis and abscess collection cannot be excluded and clinical correlation is advised. Vasculature: IVC filter is noted in place. Flow is demonstrated within the celiac, SMA, the renal arteries, and ARMANI. No abdominal aortic aneurysm. Lymph nodes: Unremarkable. No enlarged lymph nodes. IMPRESSION: 1. There is a suprapubic bladder catheter noted in place with its tip located in the distal right ureter causing right hydronephrosis and right hydroureter. 2. Inflammatory changes about the lower anterior abdominal wall particularly left of midline with there appears to be an abscess collection. 3. Extensive inflammation surrounding the left hemiscrotum with an prominent abscess collection suggested inferiorly. Clinical correlation is advised. <MYCVCSECTION> Communications: 03/21/20 20:38 Call Doctor Regarding Above results, called NEGRA PITTS on 03/21 20:38 (-07:00)
--- NOTE | 2020-03-21 21:00 | NUR ---
Face sheet,EKG,dictation and CT report faxed to [facility] and [facility] as requested.
[2020-03-21] MEDS ORDERED: Lidocaine 1% MPF 10mg/ml 5ml INJ ONE (21:30)
[2020-03-21] MEDS ORDERED: Lidocaine 2% Visc 15ml soln ORAL ONE (21:30)
--- NOTE | 2020-03-21 21:30 | NUR ---
ED Nurse Note: Patient became agitated when instructed he was NPO and could not eat the food his mother brought him. AMPARO bedside speaking with patient. Patient disconnected all tubing and awake overnight monitor leads himself. RN bedside attempting to calm and reassure patient and inform him why he is NPO. Patient placed himself in wheelchair and attempted to leave ED AMA. Patient, patient's mother, ERMD and RN spoke and patient informed of risks due to leaving AMA. Patient agreed to stay in the ED and patient escorted back to bed by tech. Patient placed back on awake overnight monitor. Safety measures met; will continue to monitor for change in condition.
--- NOTE | 2020-03-21 21:36 | Diagnostic Imaging Report ---
EXAM: US Scrotum CLINICAL HISTORY: PAIN TECHNIQUE: Real-time ultrasound of the scrotum with color Doppler and image documentation. COMPARISON: 03/14/2020. FINDINGS: Right testicle: The right testicle measures 3.2 x 1.7 x 2.5 cm. No intrinsic testicular abnormalities. Flow within the testicles. No torsion. Left testicle: Left testicle measures 3.7 x 1.7 x 2.8 cm. Epididymides: Bilateral epididymides are unremarkable. Scrotum: Small right hydroceles. There is diffuse are scrotal wall thickening with intrascrotal fluid collection inferior to the penis in the area of the raphae septum. Increased vascularity is noted. Lymph nodes: Bilateral inguinal lymph nodes which appear prominent. Other findings: Findings are worrisome for abscess collection. Early Yamini's gangrene cannot be excluded. IMPRESSION: 1. Findings most suggestive of abscess collection within the scrotum posterior and inferior to the penis. Clinical correlation is advised to 2. Early Yamini's gangrene cannot be excluded. 3. Flow to both testicles noted. 4. No intrinsic testicular abnormality is noted. 5. Prominent inguinal lymph nodes. 6. Small right hydrocele.
[2020-03-21] MEDS ORDERED: Morphine Sulfate 4mg/ml Inj (IV USE ONLY) IVP ONE (22:30)
--- NOTE | 2020-03-21 22:40 | NUR ---
ED Nurse Note: Urologist bedside for assessment of catheter and I&D procedure of scrotum; patient tolerated well. Will continue to monitor for change in condition. Patient is awake and alert. Incision cleaned and patient skin cleaned. Skin is clean/dry; new linens place on bed. Patient also repositioned. He is in no acute distress at this time.
--- NOTE | 2020-03-21 23:00 | NUR ---
ED Nurse Note: Patient is c/o pain S/P incision and drainage. Will carry out med order. New 16f suprapubic cath was placed by urologist.
--- NOTE | 2020-03-21 23:20 | NUR ---
ED Nurse Note: Significant clear fluid drainage and pus noted from scrotal incision.
--- NOTE | 2020-03-21 23:30 | NUR ---
ED Nurse Note: Patient became tachy. ERMD notified. Will continue to monitor.
[2020-03-21 23:33] VITALS: BP 138/53
--- NOTE | 2020-03-22 00:01 | Emergency Room Report ---
Physical Exam Vital Signs Date Time Temp Pulse Resp B/P (MAP) Pulse Ox O2 Delivery O2 Flow Rate FiO2 03/21/20 18:37 98.8 72 18 132/80 (97) 98 Room Air Medical Decision Making Diagnostic Impression: Primary Impression: Scrotal abscess Additional Impressions: Hydronephrosis Cellulitis of scrotum Suprapubic catheter dysfunction Paraplegia Complicated UTI (urinary tract infection) Fistula CKD (chronic kidney disease) Hydroureter Abdominal abscess Hydrocele ER Course I assumed care of this patient. He remained hemodynamically stable and in no acute distress in the emergency department. However at 1 point he suddenly became tachycardic at around 140 bpm. I assessed the patient and he was in no distress. Repeat EKG was performed EKG: Sinus rhythm, heart rate 112 bpm. No abnormal MT or QT intervals. Normal axis. No ectopy. No ST or T wave abnormalities Attempts were made to transfer the patient to [facility], [facility]. All of these were unsuccessful as these institutions either denied transfer or claim they had no beds. Patient was then accepted for admission here at this hospital. Admitted to telemetry. Last Vital Signs Date Time Temp Pulse Resp B/P (MAP) Pulse Ox O2 Delivery O2 Flow Rate FiO2 03/21/20 23:33 98.9 112 17 138/53 100 Room Air Condition: Stable Referrals: NON PHYSICIAN (PCP) Wilbert Knapp M.D. Mar 22, 2020 00:01
--- NOTE | 2020-03-22 00:30 | NUR ---
ED Nurse Note: Patient is sleeping in bed, NSR on the monitor. Appears to be in no acute distress. Breathing is normal and unlabored. Safety measures in place, will continue to monitor patient.
--- NOTE | 2020-03-22 01:00 | NUR ---
ED Nurse Note: Report given to JONAH Zeng.
--- NOTE | 2020-03-22 01:00 | NUR ---
ED Nurse Note: Patient has been NPO. Patient is requesting a sandwhich, patient informed he cannot have a sandwhich at this time as AMPARO Ferris ordered.
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
--- NOTE | 2020-03-22 01:30 | NUR ---
ED Nurse Note: Patient is stable for transfer to tele unit at this time. Pt taken to unit via gurney, connected to revenue cycle consultant by RN and tech. Patient is aaox4, breathing is normal and unlabored, VSS. Patient took all belongings to tele floor with him including wheelchair. IV patent and intact.
[2020-03-22 01:40] VITALS: BP 115/62
--- NOTE | 2020-03-22 01:40 | NUR ---
NURSE NOTES: Report received from Stephani ED RN. Revieiwed patients belonging list with ED RN. Patient came to 2E via gurney. Patient is A/O x 4. Patient is insisting on going to the restroom at this time via his wheel chair. Patient is not reporting any pain at this time, but is hungry. Patient is in stable condition. IV site is left 20G AC S/L. No bleeding erythema noted. Patient came with a Suprapubic catheter in place draining reddish urine to gravity. Patient refused gown. Patient is now resting in bed at this time. Bed in lowest position, locks in place, call light and belonging in reach. Patient educated on how to use the call light to call for assistance. Will continue to monitor.
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
--- NOTE | 2020-03-22 02:10 | NUR ---
NURSE NOTES: Left message with Dr. Oneil for admission orders. Awaiting call back. Will continue to monition patient.
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
--- NOTE | 2020-03-22 03:35 | NUR ---
NURSE NOTES: Left a second message with Dr. Oneil requesting admission orders. Awaiting call back. Will continue to monition patient
--- NOTE | 2020-03-22 03:44 | NUR ---
NURSE NOTES: Received admission orders from Dr. Oneil. Noted and carried out.
[2020-03-22] MEDS: D5 1/2NS 1,000 ML IV SCH ×2 (04:00→13:06)
[2020-03-22] MEDS ORDERED: Morphine Sulfate 2mg/ml Inj(IV/IM USE ONLY) IVP PRN (04:00)
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
--- NOTE | 2020-03-22 07:20 | NUR ---
NURSE HAND-OFF REPORT: Important Events on Shift: Patient was admitted but is refusing care. Patient Status: Stable Diet: Regular Pending Orders: [] Pending Results/Labs:[] Pending MD notification:[] Latest Vital Signs: Temperature 98.1 , Pulse 75 , B/P 115 /62 , Respiratory Rate 20 , O2 SAT 100 , Room Air, O2 Flow Rate . Vital Sign Comment: [] EKG Rhythm: Sinus Rhythm Rhythm change?: N MD Notified?: - MD Response: Latest Odom Fall Score: 35 Fall Risk: Medium Risk Safety Measures: Call light Within Reach, Bed Alarm Zone 2, Side Rails Side Rails x2, Bed position Low and Locked. Fall Precautions: Door Sign Patient Fall Education Report given to Neida MCKENZIE.
--- NOTE | 2020-03-22 07:28 | NUR ---
NURSE NOTES: Received report from Azucena/RN, Observed patient awake, lying semi-kaminski's in bed. On room air, No acute distress/SOB noted. Able to make needs known, Keira pain at this time. Doesn't want to eat breakfast at this time. IV site patent and intact. Patient has Suprapubic catheter, small reddish drainage noted. Patient refused to have his linen changed. Bed in low position and locked, Call light within reach, Encouraged to use call light when needed. Will continue plan of care.
[2020-03-22 08:50] VITALS: BP 113/70
[2020-03-22 09:32] LABS: BASOPHILS % (AUTO) 0.9 % (0.0-2.0); HEMATOCRIT 36.2 % (42.0-52.0); HEMOGLOBIN 12.2 G/DL (14.2-18.0); LYMPHOCYTES % (AUTO) 20.2 % (20.0-45.0); MEAN CORPUSCULAR VOLUME 82 FL (80-99); MONOCYTES % (AUTO) 7.9 % (1.0-10.0); NEUTROPHILS % (AUTO) 70.1 % (45.0-75.0); PLATELET COUNT 515 K/UL (150-450); RED BLOOD COUNT 4.43 M/UL (4.70-6.10); RED CELL DISTRIBUTION WIDTH 15.7 % (11.6-14.8)
[2020-03-22 09:34] LABS: ANION GAP 13 mmol/L (5-15); BLOOD UREA NITROGEN 9 mg/dL (7-18); CALCIUM 8.8 MG/DL (8.5-10.1); CARBON DIOXIDE 23 MMOL/L (21-32); CHLORIDE 106 MMOL/L (98-107); CREATININE 0.9 MG/DL (0.55-1.30); POTASSIUM 3.7 MMOL/L (3.5-5.1); SODIUM 142 MMOL/L (136-145)
[2020-03-22 12:00] VITALS: BP 106/64
--- NOTE | 2020-03-22 12:26 | Consultation ---
History of Present Illness General Date patient seen: Mar 22, 2020 Reason for Hospitalization: Abdominal Pain Present Illness HPI This is a 25-year-old male very unfortunate neurogenic bladder superior catheter placement outside facility presented to [facility] with foul-smelling urine and scrotal abscess. Status post incision and drainage of scrotal abscess and replacement of suprapubic catheter. Patient complaining abdominal pain discomfort. Abnormal labs. On IV antibiotics per infectious disease. Surgery called to evaluate and assist with care. Patient seen, patient evaluated, chart reviewed. Patient is wheelchair-bound but able to maneuver well in the wheelchair. Currently tolerating diet and comfortable. Allergies: Coded Allergies: No Known Allergies (Unverified , 03/14/20) COVID-19 Screening Contact w/high risk pt: No Experienced COVID-19 symptoms?: No Medication History Scheduled Ciprofloxacin Hcl* (Ciprofloxacin Hcl*), 500 MG ORAL EVERY 12 HOURS Divalproex Sodium* (Depakote Er*), 500 MG ORAL EVERY 12 HOURS, (Reported) Olanzapine* (Zyprexa*), 10 MG ORAL DAILY, (Reported) Scheduled PRN Melatonin (Melatonin), 3 MG ORAL BEDTIME PRN for Insomnia, (Reported) Miscellaneous Medications Multivitamin (Multi-Vitamin Daily), 1 EACH PO, (Reported) Naltrexone Hcl (Naltrexone Hcl), 50 MG PO, (Reported) Patient History History Provided By: Patient, Medical Record, PMD Healthcare decision maker Resuscitation status Advanced Directive on File Past Medical/Surgical History Past Medical/Surgical History: (1) Dehydration (2) ISAURO (acute kidney injury) (3) Hydronephrosis (4) Cellulitis of scrotum (5) Paraplegia (6) Fistula (7) Hydroureter (8) Abdominal abscess (9) Hydrocele (10) CKD (chronic kidney disease) (11) Complicated UTI (urinary tract infection) (12) Suprapubic catheter dysfunction (13) Sepsis (14) Scrotal abscess (15) Complicated UTI and Scrotal Abscess/ Cellulitis (16) Tachycardia Review of Systems Review of Symptoms General ROS: no weight loss or fever Psychological ROS: no depression or mood changes, no memory loss Ophthalmic ROS: no visual changes or eye irritation ENT ROS: no nasal congestion, hearing loss, dizziness Allergy and Immunology ROS: no allergic symptoms or urticaria Hematological and Lymphatic ROS: no swollen glands, unusual bleeding or bruising Endocrine ROS: no polyuria, polydipsia, weight changes, temperature intolerance Respiratory ROS: no cough, shortness of breath, or wheezing Cardiovascular ROS: no chest pain or dyspnea on exertion Gastrointestinal ROS: denies abdominal pain, bright red blood in stool. Musculoskeletal ROS: no myalgias or arthralgias Neurological ROS: no TIA or stroke symptoms Dermatological ROS: no new or changing skin lesions, rashes or pruritis Physical Exam Physical Exam General appearance: alert, cooperative, no distress, appears stated age Head: Normocephalic, without obvious abnormality, atraumatic Eyes: conjunctivae/corneas clear. PERRL, EOM's intact. Fundi benign Throat: Lips, mucosa, and tongue normal. Teeth and gums normal Neck: supple, symmetrical, trachea midline, no adenopathy, thyroid: not enlarged, symmetric, no tenderness/mass/nodules, no carotid bruit and no JVD Lungs: clear to auscultation bilaterally Heart: regular rate and rhythm, S1, S2 normal, no murmur, click, rub or gallop Abdomen: soft, non-tender. Bowel sounds normal. No masses, no organomegaly superior catheter Extremities: extremities normal, atraumatic, no cyanosis or edema Pulses: 2+ and symmetric Skin: Skin color, texture, turgor normal. No rashes or lesions scrotal abscess status post I&D dressings intact Neurologic: Grossly normal Last 24 Hour Vital Signs Date Time Temp Pulse Resp B/P (MAP) Pulse Ox O2 Delivery O2 Flow Rate FiO2 03/22/20 08:50 98.0 95 20 113/70 (84) 98 03/22/20 08:00 124 03/22/20 04:00 75 03/22/20 02:17 Room Air 03/22/20 01:40 99 03/22/20 01:40 98.1 98 20 115/62 (79) 100 03/22/20 01:30 98.6 85 18 125/66 100 Room Air 03/21/20 23:41 98.9 03/21/20 23:33 98.9 112 17 138/53 100 Room Air 03/21/20 19:15 83 18 Room Air 03/21/20 19:15 98.8 83 18 114/61 100 Room Air 03/21/20 18:37 98.8 72 18 132/80 (97) 98 Room Air Intake and Output 03/21/20 03/22/20 19:00 07:00 Intake Total 0 ml Output Total 200 ml Balance -200 ml Intake Oral 0 ml Output Urine Total 200 ml Laboratory Tests Test 03/21/20 18:55 03/22/20 09:05 White Blood Count 15.5 K/UL (4.8-10.8) H 10.0 K/UL (4.8-10.8) Red Blood Count 4.23 M/UL (4.70-6.10) L 4.43 M/UL (4.70-6.10) L Hemoglobin 11.9 G/DL (14.2-18.0) L 12.2 G/DL (14.2-18.0) L Hematocrit 35.1 % (42.0-52.0) L 36.2 % (42.0-52.0) L Mean Corpuscular Volume 83 FL (80-99) 82 FL (80-99) Mean Corpuscular Hemoglobin 28.0 PG (27.0-31.0) 27.6 PG (27.0-31.0) Mean Corpuscular Hemoglobin Concent 33.8 G/DL (32.0-36.0) 33.8 G/DL (32.0-36.0) Red Cell Distribution Width 16.8 % (11.6-14.8) H 15.7 % (11.6-14.8) H Platelet Count 421 K/UL (150-450) 515 K/UL (150-450) H Mean Platelet Volume 6.3 FL (6.5-10.1) L 5.8 FL (6.5-10.1) L Neutrophils (%) (Auto) 63.6 % (45.0-75.0) 70.1 % (45.0-75.0) Lymphocytes (%) (Auto) 23.3 % (20.0-45.0) 20.2 % (20.0-45.0) Monocytes (%) (Auto) 10.4 % (1.0-10.0) H 7.9 % (1.0-10.0) Eosinophils (%) (Auto) 1.5 % (0.0-3.0) 1.0 % (0.0-3.0) Basophils (%) (Auto) 1.3 % (0.0-2.0) 0.9 % (0.0-2.0) Prothrombin Time 13.1 SEC (9.30-11.50) H Prothromb Time International Ratio 1.2 (0.9-1.1) H Activated Partial Thromboplast Time 30 SEC (23-33) Urine Color [place] Urine Appearance Very cloudy Urine pH 6 (4.5-8.0) Urine Specific [place] 1.015 (1.005-1.035) Urine Protein 3+ (NEGATIVE) H Urine Glucose (UA) Negative (NEGATIVE) Urine Ketones 1+ (NEGATIVE) H Urine Blood 5+ (NEGATIVE) H Urine Nitrite Negative (NEGATIVE) Urine Bilirubin Negative (NEGATIVE) Urine Ictotest Negative (NEGATIVE) Urine Urobilinogen Normal MG/DL (0.0-1.0) Urine Leukocyte Esterase 3+ (NEGATIVE) H Urine RBC 15-20 /HPF (0 - 0) H Urine WBC Tntc /HPF (0 - 0) H Urine Squamous Epithelial Cells Occasional /LPF Urine Amorphous Sediment Many /LPF (NONE) H Urine Bacteria Many /HPF (NONE) H Sodium Level 141 MMOL/L (136-145) 142 MMOL/L (136-145) Potassium Level 4.5 MMOL/L (3.5-5.1) 3.7 MMOL/L (3.5-5.1) Chloride Level 105 MMOL/L (98-107) 106 MMOL/L (98-107) Carbon Dioxide Level 27 MMOL/L (21-32) 23 MMOL/L (21-32) Anion Gap 10 mmol/L (5-15) 13 mmol/L (5-15) Blood Urea Nitrogen 16 mg/dL (7-18) 9 mg/dL (7-18) Creatinine 1.4 MG/DL (0.55-1.30) H 0.9 MG/DL (0.55-1.30) Estimat Glomerular Filtration Rate > 60 mL/min (>60) > 60 mL/min (>60) Glucose Level 96 MG/DL (74-106) 100 MG/DL (74-106) Lactic Acid Level 1.40 mmol/L (0.4-2.0) Calcium Level 8.3 MG/DL (8.5-10.1) L 8.8 MG/DL (8.5-10.1) Phosphorus Level 4.5 MG/DL (2.5-4.9) Magnesium Level 1.9 MG/DL (1.8-2.4) Total Bilirubin 0.3 MG/DL (0.2-1.0) Aspartate Amino Transf (AST/SGOT) 16 U/L (15-37) Alanine Aminotransferase (ALT/SGPT) 31 U/L (12-78) Alkaline Phosphatase 98 U/L (46-116) Creatine Kinase MB 0.8 NG/ML (0.0-3.6) Troponin I 0.000 ng/mL (0.000-0.056) Total Protein 7.6 G/DL (6.4-8.2) Albumin 2.7 G/DL (3.4-5.0) L Globulin 4.9 g/dL Albumin/Globulin Ratio 0.6 (1.0-2.7) L Lipase 159 U/L (73-393) Microbiology Date/Time Source Procedure Growth Status 03/21/20 18:55 Skin Gram Stain - Final Resulted 03/21/20 18:55 Skin Wound Culture Pending Resulted 03/21/20 18:55 Nasopharynx SARS-CoV-2 RdRp Gene Assay - Final Complete 03/21/20 18:55 Indwelling Cath Urine Culture - Preliminary NO GROWTH Resulted Height (Feet): 5 Height (Inches): 11.00 Weight (Pounds): 135 Medications Current Medications Medications (Trade) Dose Ordered Sig/Mitchell Route PRN Reason Start Time Stop Time Status Last Admin Dose Admin Dextrose/Sodium Chloride 1,000 ml @ 60 mls/hr [id number] IV 03/22/20 04:00 04/21/20 03:59 Iohexol (OMNIPAQUE-300 100ml) 100 ml NOW PRN INJ Radiology Procedure 03/21/20 18:45 03/23/20 18:42 Morphine Sulfate (Morphine Sulfate) 2 mg Q4H PRN IVP Severe Pain (Pain Scale 7-10) 03/22/20 04:00 03/29/20 03:59 Assessment/Plan Problem List: (1) Dehydration ICD Codes: E86.0 - Dehydration SNOMED: 47609448, 0512810 (2) ISAURO (acute kidney injury) ICD Codes: N17.9 - Acute kidney failure, unspecified SNOMED: 00471772, 4893766 (3) Hydronephrosis ICD Codes: N13.30 - Unspecified hydronephrosis SNOMED: 61891849 (4) Cellulitis of scrotum ICD Codes: N49.2 - Inflammatory disorders of scrotum SNOMED: 66302744 (5) Paraplegia ICD Codes: G82.20 - Paraplegia, unspecified SNOMED: 64445953 (6) Fistula ICD Codes: L98.8 - Other specified disorders of the skin and subcutaneous tissue SNOMED: 183864222 (7) Hydroureter ICD Codes: N13.4 - Hydroureter SNOMED: 64502270 (8) Abdominal abscess SNOMED: 24983198 (9) Hydrocele ICD Codes: N43.3 - Hydrocele, unspecified SNOMED: 84002178, 583229443 (10) CKD (chronic kidney disease) ICD Codes: N18.9 - Chronic kidney disease, unspecified SNOMED: 919286009 (11) Complicated UTI (urinary tract infection) ICD Codes: N39.0 - Urinary tract infection, site not specified SNOMED: 31923217 (12) Suprapubic catheter dysfunction Assessment & Plan: s/p replacement functional uti abx as per ID will follow with recs thank you Right testicle: The right testicle measures 3.2 x 1.7 x 2.5 cm. No intrinsic testicular abnormalities. Flow within the testicles. No torsion. Left testicle: Left testicle measures 3.7 x 1.7 x 2.8 cm. Epididymides: Bilateral epididymides are unremarkable. Scrotum: Small right hydroceles. There is diffuse are scrotal wall thickening with intrascrotal fluid collection inferior to the penis in the area of the raphae septum. Increased vascularity is noted. Lymph nodes: Bilateral inguinal lymph nodes which appear prominent. Other findings: Findings are worrisome for abscess collection. Early Yamini's gangrene cannot be excluded. IMPRESSION: 1. Findings most suggestive of abscess collection within the scrotum posterior and inferior to the penis. Clinical correlation is advised to 2. Early Yamini's gangrene cannot be excluded. 3. Flow to both testicles noted. 4. No intrinsic testicular abnormality is noted. 5. Prominent inguinal lymph nodes. 6. Small right hydrocele. ICD Codes: T83.010A - Breakdown (mechanical) of cystostomy catheter, initial encounter SNOMED: 536734422 (13) Tachycardia ICD Codes: R00.0 - Tachycardia, unspecified SNOMED: 6351285 (14) Sepsis ICD Codes: A41.9 - Sepsis, unspecified organism SNOMED: 87295785 (15) Scrotal abscess Assessment & Plan: s/p I&D in ED dressings saturated and will need local care will follow with recs thank you dressings TID and prn with gauze Liver: Diffuse fatty infiltration of the liver is noted with fatty sparing about the round ligament. The liver and the spleen enhance uniformly. Gallbladder and bile ducts: The gallbladder is in a semi-contracted state. No calcified stones. No ductal dilation. Pancreas: See below. Spleen: See above. Adrenals: The adrenal glands, the head, body, tail of the pancreas are unremarkable per Kidneys and ureters: Both kidneys are shown to excrete contrast bilaterally, left kidney more so than the right kidney. Moderate right hydronephrosis. Right suprapubic bladder catheter is noted in place with tip located within the distal right ureter causing obstruction of the right ureter and right hydronephrosis. Left kidney is unremarkable without hydronephrosis. Stomach and bowel: Presumed ingested material in the stomach. Moderate quantity of stool throughout the colon. No evidence of bowel obstruction could No evidence of bowel obstruction. Diverticulosis without diverticulitis appeared PELVIS: Appendix: The appendix is seen on axial image 59 and is unremarkable. Bladder: Unremarkable. No mass. Reproductive: Diffuse wall thickening of the left scrotum. At the inferior aspect of the left scrotum there is suggestion of a 3.1 x 2.2 x 2.8 cm abscess collection. Clinical correlation is advised. ABDOMEN and PELVIS: Intraperitoneal space: Unremarkable. No free air. No significant fluid collection. Bones/joints: Mild to moderate osteoarthritic changes about the sacroiliac joints. Alignment of the thoracolumbar spine is unremarkable. The sacrum and coccyx are unremarkable. No acute fracture. Soft tissues: There is extensive stranding about the lower anterior abdominal wall particularly left of midline where there is a 5.3 x 1.5 cm subcutaneous fluid collection. Cellulitis and abscess collection cannot be excluded and clinical correlation is advised. Vasculature: IVC filter is noted in place. Flow is demonstrated within the celiac, SMA, the renal arteries, and ARMANI. No abdominal aortic aneurysm. Lymph nodes: Unremarkable. No enlarged lymph nodes. IMPRESSION: 1. There is a suprapubic bladder catheter noted in place with its tip located in the distal right ureter causing right hydronephrosis and right hydroureter. 2. Inflammatory changes about the lower anterior abdominal wall particularly left of midline with there appears to be an abscess collection. 3. Extensive inflammation surrounding the left hemiscrotum with an prominent abscess collection suggested inferiorly. Clinical correlation is advised. ICD Codes: N49.2 - Inflammatory disorders of scrotum SNOMED: 23976624 (16) Complicated UTI and Scrotal Abscess/ Cellulitis Mickey Goldman Mar 22, 2020 12:26
--- NOTE | 2020-03-22 13:20 | NUR ---
NURSE NOTES: Patient keeps turning off IV pump, not getting IV fluid properly.
[2020-03-22] MEDS ORDERED: cefTRIAXone 1 GM in D5W 55 ML IVPB SCH (13:30)
--- NOTE | 2020-03-22 14:00 | History and Physical Report ---
DATE OF ADMISSION: 03/21/2020 TIME SEEN: 8 a.m. CONSULTANTS: 1. Moy Barahona MD 2. Benedicto Adames MD. 3. Mickey Goldman MD. 4. Abraham Naidu MD. CHIEF COMPLAINT: Pelvic mass, complicated UTI, scrotal abscess. BRIEF HISTORY: This is a 25-year-old male who lives at home with history of paraplegia and suprapubic catheter, developed scrotal pain, came into [place], diagnosed with pelvic abscess, complicated UTI, scrotal abscess, and was admitted to telemetry. Currently, calm in wheelchair in room, no complaint. REVIEW OF SYSTEMS: No chest pain. No shortness of breath. No nausea, vomiting, or diarrhea. PAST MEDICAL HISTORY: Paraplegia. PAST SURGICAL HISTORY: Suprapubic catheter. MEDICATIONS: Include morphine, Zofran, clindamycin, vancomycin, Zosyn. ALLERGIES: Denies. SOCIAL HISTORY: No smoking. No alcohol. No intravenous drug abuse. FAMILY HISTORY: Noncontributory. PHYSICAL EXAMINATION: GENERAL: Calm in wheelchair, oriented x3, no acute distress. VITAL SIGNS: Temperature is 98 degrees, pulse 99, respiratory rate 20, blood pressure 115/62. CARDIOVASCULAR: No murmur. LUNGS: Distant and clear. ABDOMEN: Bowel sounds positive. Nontender. Nondistended. EXTREMITIES: No cyanosis, clubbing, or edema. NEUROLOGIC: Paraplegia below waist and in place. LABORATORY AND DIAGNOSTIC DATA: Labs at this time show white count 15, hemoglobin and hematocrit 11 and 35, platelets 432. BMP shows creatinine 1.4, otherwise troponin 0.00, albumin 2.7. INR is 1.2. Urinalysis show 3+ leukocyte esterase. ASSESSMENT: 1. Pelvic abscess. 2. Complicated UTI. 3. Scrotal abscess. 4. Anemia. 5. Malnutrition. 6. Paraplegia. PLAN: 1. Wound care. 2. Antibiotics per Infectious Diseases. 3. Pain control. 4. Dietary followup. 5. Surgery followup. 6. CBC and BMP in the morning. Yaw Oneil D.O. DR: Lucrecia JOB#: [id number] CC:
[2020-03-22] MEDS: Vancomycin 1.25gm/NS Premix IVPB SCH (15:13)
[2020-03-22 16:00] VITALS: BP 98/57
--- NOTE | 2020-03-22 16:04 | Cardiac Electrophysiology PN ---
Subjective Subjective [id number] Objective Last 24 Hour Vital Signs Date Time Temp Pulse Resp B/P (MAP) Pulse Ox O2 Delivery O2 Flow Rate FiO2 03/22/20 12:00 98.0 96 20 106/64 (78) 98 03/22/20 12:00 89 03/22/20 09:00 Room Air 03/22/20 08:50 98.0 95 20 113/70 (84) 98 03/22/20 08:00 124 03/22/20 04:00 75 03/22/20 02:17 Room Air 03/22/20 01:40 99 03/22/20 01:40 98.1 98 20 115/62 (79) 100 03/22/20 01:30 98.6 85 18 125/66 100 Room Air 03/21/20 23:41 98.9 03/21/20 23:33 98.9 112 17 138/53 100 Room Air 03/21/20 19:15 83 18 Room Air 03/21/20 19:15 98.8 83 18 114/61 100 Room Air 03/21/20 18:37 98.8 72 18 132/80 (97) 98 Room Air Intake and Output 03/21/20 03/22/20 19:00 07:00 Intake Total 0 ml Output Total 200 ml Balance -200 ml Intake Oral 0 ml Output Urine Total 200 ml Laboratory Tests Test 03/21/20 18:55 03/22/20 09:05 White Blood Count 15.5 K/UL (4.8-10.8) H 10.0 K/UL (4.8-10.8) Red Blood Count 4.23 M/UL (4.70-6.10) L 4.43 M/UL (4.70-6.10) L Hemoglobin 11.9 G/DL (14.2-18.0) L 12.2 G/DL (14.2-18.0) L Hematocrit 35.1 % (42.0-52.0) L 36.2 % (42.0-52.0) L Mean Corpuscular Volume 83 FL (80-99) 82 FL (80-99) Mean Corpuscular Hemoglobin 28.0 PG (27.0-31.0) 27.6 PG (27.0-31.0) Mean Corpuscular Hemoglobin Concent 33.8 G/DL (32.0-36.0) 33.8 G/DL (32.0-36.0) Red Cell Distribution Width 16.8 % (11.6-14.8) H 15.7 % (11.6-14.8) H Platelet Count 421 K/UL (150-450) 515 K/UL (150-450) H Mean Platelet Volume 6.3 FL (6.5-10.1) L 5.8 FL (6.5-10.1) L Neutrophils (%) (Auto) 63.6 % (45.0-75.0) 70.1 % (45.0-75.0) Lymphocytes (%) (Auto) 23.3 % (20.0-45.0) 20.2 % (20.0-45.0) Monocytes (%) (Auto) 10.4 % (1.0-10.0) H 7.9 % (1.0-10.0) Eosinophils (%) (Auto) 1.5 % (0.0-3.0) 1.0 % (0.0-3.0) Basophils (%) (Auto) 1.3 % (0.0-2.0) 0.9 % (0.0-2.0) Prothrombin Time 13.1 SEC (9.30-11.50) H Prothromb Time International Ratio 1.2 (0.9-1.1) H Activated Partial Thromboplast Time 30 SEC (23-33) Urine Color [place] Urine Appearance Very cloudy Urine pH 6 (4.5-8.0) Urine Specific [place] 1.015 (1.005-1.035) Urine Protein 3+ (NEGATIVE) H Urine Glucose (UA) Negative (NEGATIVE) Urine Ketones 1+ (NEGATIVE) H Urine Blood 5+ (NEGATIVE) H Urine Nitrite Negative (NEGATIVE) Urine Bilirubin Negative (NEGATIVE) Urine Ictotest Negative (NEGATIVE) Urine Urobilinogen Normal MG/DL (0.0-1.0) Urine Leukocyte Esterase 3+ (NEGATIVE) H Urine RBC 15-20 /HPF (0 - 0) H Urine WBC Tntc /HPF (0 - 0) H Urine Squamous Epithelial Cells Occasional /LPF Urine Amorphous Sediment Many /LPF (NONE) H Urine Bacteria Many /HPF (NONE) H Sodium Level 141 MMOL/L (136-145) 142 MMOL/L (136-145) Potassium Level 4.5 MMOL/L (3.5-5.1) 3.7 MMOL/L (3.5-5.1) Chloride Level 105 MMOL/L (98-107) 106 MMOL/L (98-107) Carbon Dioxide Level 27 MMOL/L (21-32) 23 MMOL/L (21-32) Anion Gap 10 mmol/L (5-15) 13 mmol/L (5-15) Blood Urea Nitrogen 16 mg/dL (7-18) 9 mg/dL (7-18) Creatinine 1.4 MG/DL (0.55-1.30) H 0.9 MG/DL (0.55-1.30) Estimat Glomerular Filtration Rate > 60 mL/min (>60) > 60 mL/min (>60) Glucose Level 96 MG/DL (74-106) 100 MG/DL (74-106) Lactic Acid Level 1.40 mmol/L (0.4-2.0) Calcium Level 8.3 MG/DL (8.5-10.1) L 8.8 MG/DL (8.5-10.1) Phosphorus Level 4.5 MG/DL (2.5-4.9) Magnesium Level 1.9 MG/DL (1.8-2.4) Total Bilirubin 0.3 MG/DL (0.2-1.0) Aspartate Amino Transf (AST/SGOT) 16 U/L (15-37) Alanine Aminotransferase (ALT/SGPT) 31 U/L (12-78) Alkaline Phosphatase 98 U/L (46-116) Creatine Kinase MB 0.8 NG/ML (0.0-3.6) Troponin I 0.000 ng/mL (0.000-0.056) Total Protein 7.6 G/DL (6.4-8.2) Albumin 2.7 G/DL (3.4-5.0) L Globulin 4.9 g/dL Albumin/Globulin Ratio 0.6 (1.0-2.7) L Lipase 159 U/L (73-393) Microbiology Date/Time Source Procedure Growth Status 03/21/20 18:55 Skin Gram Stain - Final Resulted 03/21/20 18:55 Skin Wound Culture Pending Resulted 03/21/20 18:55 Nasopharynx SARS-CoV-2 RdRp Gene Assay - Final Complete 03/21/20 18:55 Indwelling Cath Urine Culture - Preliminary NO GROWTH Resulted Abraham Naidu MD Mar 22, 2020 16:04
--- NOTE | 2020-03-22 16:20 | NUR ---
NURSE NOTES: Patient refused to get quality assurance monitor chassis fixed., He has it on but not reading rhythms.
[2020-03-22] MEDS ORDERED: Aluminum Hydroxide Gel Susp 15ml ORAL PRN (17:30)
--- NOTE | 2020-03-22 19:25 | NUR ---
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 Vital Sign Comment: Stable EKG Rhythm: Sinus Rhythm Rhythm change?: N MD Notified?: - MD Response: Latest Odom Fall Score: 35 Fall Risk: Medium Risk Safety Measures: Call light Within Reach, Bed Alarm Zone 1, Side Rails Side Rails x2, Bed position Low and Locked. Fall Precautions: Door Sign Patient Fall Education Report given to Azucena/RN.
--- NOTE | 2020-03-22 19:30 | NUR ---
NURSE NOTES: Report received from [facility] ED RN. Patient is A/O x 4. Patient is currently sitting at the end of the bed with legs dangling and drinking apple juice. No distress noted at this time. Patient is not reporting any pain at this time. IV site is left 20G AC S/L; Patient is refusing fluids at this time. Disused the benefits of IV fluids but patient is still refusing. IV is flushed and patient. No bleeding erythema noted. Patient Suprapubic catheter draining well urine to gravity, But patient is still urinating thru penis and is incontinent. Patient refused to change in to gown. Patient was brought a clean gown and pants. Will encourage patient to change at a later time. Patient is now resting in bed at this time. Bed in lowest position, locks in place, call light and belonging in reach. Patient educated on how to use the call light to call for assistance. Will continue to monitor.
[2020-03-22 20:00] VITALS: BP 112/64
--- NOTE | 2020-03-22 22:45 | Consultation ---
DATE OF CONSULTATION: 03/22/2020 CARDIOLOGY CONSULTATION CONSULTING PHYSICIAN: Abraham Naidu MD. REFERRING PHYSICIAN: Yaw Oneil DO. REASON FOR CONSULTATION: Tachycardia. HISTORY OF PRESENT ILLNESS: Patient is a 25-year-old gentleman with history of paraplegia and neurogenic bladder, status post suprapubic indwelling catheter was brought in from ambulance from a psychiatric board and care for abdominal pain and foul-smelling urine and scrotal pain. Patient has been treated with antibiotic for the last week, but symptoms were not improving. Patient also noticed pus coming from his left scrotal area, which has not been getting without outpatient antibiotic. Patient was admitted. Patient was tachycardic and a Cardiology consultation was obtained for further evaluation. REVIEW OF SYSTEMS: Negative other than what was mentioned in the history of present illness. PAST MEDICAL HISTORY: As mentioned above. FAMILY HISTORY: Noncontributory. SOCIAL HISTORY: [place]iary resident. Does not smoke or drink alcohol. PHYSICAL EXAMINATION: VITAL SIGNS: Blood pressure is 106/64, pulse was as high as 124, respirations 18, and he is afebrile. HEAD AND NECK: Showed no JVD. LUNGS: Clear. CARDIOVASCULAR: Shows regular S1 and S2 with no gallop. ABDOMEN: Soft. Has suprapubic catheter. EXTREMITIES: No pitting edema. He is paraplegic. GENITOURINARY: His left scrotum has pus coming from the skin. LABORATORY AND DIAGNOSTIC DATA: His labs show white count of 10, hemoglobin of 12.2, hematocrit 36, and platelet count of 515. Initial white count was 15.5. Sodium 142, potassium 3.7, BUN of 9, creatinine 0.9, and glucose of 100. Troponin is negative. ASSESSMENT AND PLAN: 1. Tachycardia due to sinus tachycardia. No evidence of atrial fibrillation. We will watch the patient on telemetry. We will repeat the EKG and echo and troponin. First troponin is negative. 2. Suprapubic catheter infection. Patient is already on broad-spectrum IV antibiotics. He was already evaluated by Urology with Dr. Adames. 3. Abdominal pain, likely due to suprapubic catheter. 4. Dehydration. 5. Hydronephrosis. Thank you very much for allowing me to participate in the care of this patient. Please do not hesitate to contact me for any questions regarding my evaluation. Abraham Naidu M.D. DR: [place] JOB#: [id number] CC:
--- NOTE | 2020-03-23 | NUR ---
NURSE NOTES: Patient is refusing to changed at this time. Patient is also refusing his vital damari to be taken. Will continue to request to clean patient up.
[2020-03-23] MEDS: Vancomycin 1.25gm/NS Premix IVPB SCH ×2 (03:15→14:48)
--- NOTE | 2020-03-23 06:30 | NUR ---
NURSE NOTES: Patient is relaxed in his wheel chair. Bed sheets changed are being changed. Patient is still refusing to change. Patient is also refusing to get in bed to have his weight taken.
[2020-03-23 06:50] LABS: BASOPHILS % (AUTO) 0.9 % (0.0-2.0); EOSINOPHILS % (AUTO) 1.4 % (0.0-3.0); HEMATOCRIT 33.4 % (42.0-52.0); HEMOGLOBIN 10.8 G/DL (14.2-18.0); LYMPHOCYTES % (AUTO) 24.5 % (20.0-45.0); MEAN CORPUSCULAR VOLUME 82 FL (80-99); MONOCYTES % (AUTO) 6.9 % (1.0-10.0); NEUTROPHILS % (AUTO) 66.3 % (45.0-75.0); PLATELET COUNT 490 K/UL (150-450); RED BLOOD COUNT 4.06 M/UL (4.70-6.10); RED CELL DISTRIBUTION WIDTH 15.9 % (11.6-14.8)
[2020-03-23 07:26] LABS: ANION GAP 8 mmol/L (5-15); BLOOD UREA NITROGEN 9 mg/dL (7-18); CALCIUM 8.8 MG/DL (8.5-10.1); CARBON DIOXIDE 26 MMOL/L (21-32); CHLORIDE 106 MMOL/L (98-107); CREATININE 0.7 MG/DL (0.55-1.30); POTASSIUM 4.5 MMOL/L (3.5-5.1); SODIUM 140 MMOL/L (136-145)
--- NOTE | 2020-03-23 07:30 | NUR ---
NURSE NOTES: pt in bed half of his body in bed legs and feet on the grown. He does not wishes to lay down in bed. pt on cardiac exercise specialist no signs of cardiac or respiratory distress at this time. Bed is locked and in lowest position, call light within reach. will continue to monitor pt.
--- NOTE | 2020-03-23 07:45 | NUR ---
NURSE NOTES: pt, is refusing to get fluids. Pt is able to disconnect himself from IV pump.
--- NOTE | 2020-03-23 07:48 | NUR ---
NURSE HAND-OFF REPORT: Important Events on Shift: Patient refused care. Patient refused IV Fluids. Patient Status: Stable Diet: Regular Pending Orders: [] Pending Results/Labs:[] Pending MD notification:[] Latest Vital Signs: Temperature 96.4 , Pulse 113 , B/P 112 /64 , Respiratory Rate 17 , O2 SAT 100 , Room Air, O2 Flow Rate . Vital Sign Comment: Refused 00:00 and 04:00 EKG Rhythm: Sinus Tachycardia Rhythm change?: N MD Notified?: - MD Response: Latest Odom Fall Score: 35 Fall Risk: Medium Risk Safety Measures: Call light Within Reach, Bed Alarm Zone 1, Side Rails Side Rails x2, Bed position Low and Locked. Fall Precautions: Door Sign Patient Fall Education Report given to Arabella MCKENZIE.
[2020-03-23 08:24] VITALS: BP 107/71
--- NOTE | 2020-03-23 08:24 | NUR ---
RD ASSESSMENT & RECOMMENDATIONS SEE CARE ACTIVITY FOR COMPLETE ASSESSMENT DAILY ESTIMATED NEEDS: Needs based on underweight, paraplegic 61.4 28-30 kcals/kg 1719- 1842 total kcals 1.25-1.5 g protein/kg 77-92 g total protein 25-30 mL/kg 2219-5634 total fluid mLs NUTRITION DIAGNOSIS: Increased kcal and pro needs r/t underweight status as evidenced by pt @78% of [place] Body Weight. CURRENT DIET: regular PO DIET RECOMMENDATIONS: Maintain Regular diet ADDITIONAL RECOMMENDATIONS: 1) maintain calibrated bed scale weights 2) monitor for continued good po intake 3) wound eval, f/up. 4) add Ensure Enlive BID + snacks in b/w meals
--- NOTE | 2020-03-23 09:01 | General Progress Note ---
Assessment/Plan Problem List: (1) Anemia ICD Codes: D64.9 - Anemia, unspecified SNOMED: 494269146 (2) Malnutrition ICD Codes: E46 - Unspecified protein-calorie malnutrition SNOMED: 98364102 (3) Paraplegia ICD Codes: G82.20 - Paraplegia, unspecified SNOMED: 59455653 (4) Complicated UTI (urinary tract infection) ICD Codes: N39.0 - Urinary tract infection, site not specified SNOMED: 36917054 (5) Suprapubic catheter dysfunction ICD Codes: T83.010A - Breakdown (mechanical) of cystostomy catheter, initial encounter SNOMED: 633131796 (6) Sepsis ICD Codes: A41.9 - Sepsis, unspecified organism SNOMED: 56134392 (7) Scrotal abscess ICD Codes: N49.2 - Inflammatory disorders of scrotum SNOMED: 30378807 Status: unchanged Assessment/Plan: pt diet abx pain control wound care cbc bmp in am Subjective Constitutional: Reports: weakness Allergies: Coded Allergies: No Known Allergies (Unverified , 03/14/20) All Systems: reviewed and negative except above Subjective sleepy in bed Objective Last 24 Hour Vital Signs Date Time Temp Pulse Resp B/P (MAP) Pulse Ox O2 Delivery O2 Flow Rate FiO2 03/23/20 08:24 97.7 70 18 107/71 (83) 98 03/23/20 04:00 113 03/23/20 00:00 78 03/22/20 21:00 Room Air 03/22/20 20:00 85 03/22/20 20:00 96.4 80 17 112/64 (80) 100 03/22/20 16:00 85 03/22/20 16:00 97.9 91 20 98/57 (71) 98 03/22/20 12:00 98.0 96 20 106/64 (78) 98 03/22/20 12:00 89 03/22/20 09:00 Room Air Intake and Output 03/22/20 03/23/20 19:00 07:00 Intake Total 560 ml 480 ml Balance 560 ml 480 ml Intake Oral 360 ml 480 ml Other 200 ml # Voids 2 Laboratory Tests 03/22/20 09:05: White Blood Count 10.0, Red Blood Count 4.43L, Hemoglobin 12.2L, Hematocrit 36.2L, Mean Corpuscular Volume 82, Mean Corpuscular Hemoglobin 27.6, Mean Corpuscular Hemoglobin Concent 33.8, Red Cell Distribution Width 15.7H, Platelet Count 515H, Mean Platelet Volume 5.8L, Neutrophils (%) (Auto) 70.1, Lymphocytes (%) (Auto) 20.2, Monocytes (%) (Auto) 7.9, Eosinophils (%) (Auto) 1.0, Basophils (%) (Auto) 0.9, Sodium Level 142, Potassium Level 3.7, Chloride Level 106, Carbon Dioxide Level 23, Anion Gap 13, Blood Urea Nitrogen 9, Creatinine 0.9, Estimat Glomerular Filtration Rate > 60, Glucose Level 100, Calcium Level 8.8 03/23/20 05:40: White Blood Count 10.0, Red Blood Count 4.06L, Hemoglobin 10.8L, Hematocrit 33.4L, Mean Corpuscular Volume 82, Mean Corpuscular Hemoglobin 26.7L, Mean Corpuscular Hemoglobin Concent 32.5, Red Cell Distribution Width 15.9H, Platelet Count 490H, Mean Platelet Volume 5.8L, Neutrophils (%) (Auto) 66.3, Lymphocytes (%) (Auto) 24.5, Monocytes (%) (Auto) 6.9, Eosinophils (%) (Auto) 1.4, Basophils (%) (Auto) 0.9, Sodium Level 140, Potassium Level 4.5, Chloride Level 106, Carbon Dioxide Level 26, Anion Gap 8, Blood Urea Nitrogen 9, Creatinine 0.7, Estimat Glomerular Filtration Rate > 60, Glucose Level 90, Calcium Level 8.8, D-Dimer 6.98H, Troponin I 0.000, Pro-B-Type Natriuretic Peptide 68, Thyroid Stimulating Hormone (TSH) 0.425, Free Thyroxine 2.16H Height (Feet): 5 Height (Inches): 11.00 Weight (Pounds): 135 General Appearance: lethargic EENT: normal ENT inspection Neck: normal alignment Cardiovascular: normal peripheral pulses, normal rate, regular rhythm Respiratory/Chest: chest wall non-tender, lungs clear, normal breath sounds Abdomen: normal bowel sounds, non tender, soft Extremities: normal inspection Edema: no edema noted Arm (L), no edema noted Arm (R), no edema noted Leg (L), no edema noted Leg (R), no edema noted Pedal (L), no edema noted Pedal (R), no edema noted Generalized Neurologic: motor weakness Skin: normal pigmentation, warm/dry Yaw Oneil DO Mar 23, 2020 09:01
--- NOTE | 2020-03-23 09:55 | NUR ---
PT EVALUATION NOTE Patient seen for initial evaluation. Patient is independent with bed <-> wheelchair transfers, non-ambulatory at baseline, independent with wheelchair mobility. Skilled inpatient PT intervention is not indicated as patient is at baseline level of function. Patient discharged from PT, Arabella MCKENZIE notified. Addendum: 03/23/20 at 1136 by GRIFFIN SINCLAIR PT Amended: Links added.
--- NOTE | 2020-03-23 13:17 | Surgery Progress Note ---
Surgery Progress Note Subjective Additional Comments labs improved dressings changed suprapubic okay Objective Last 24 Hour Vital Signs Date Time Temp Pulse Resp B/P (MAP) Pulse Ox O2 Delivery O2 Flow Rate FiO2 03/23/20 09:00 Room Air 03/23/20 08:24 97.7 70 18 107/71 (83) 98 03/23/20 04:00 113 03/23/20 00:00 78 03/22/20 21:00 Room Air 03/22/20 20:00 85 03/22/20 20:00 96.4 80 17 112/64 (80) 100 03/22/20 16:00 85 03/22/20 16:00 97.9 91 20 98/57 (71) 98 I&O Intake and Output 03/22/20 03/23/20 19:00 07:00 Intake Total 560 ml 480 ml Balance 560 ml 480 ml Intake Oral 360 ml 480 ml Other 200 ml # Voids 2 Dressing: saturated Cardiovascular: RSR Respiratory: decreased breath sounds Abdomen: soft, non-tender, present bowel sounds Extremities: no edema, no tenderness, no cyanosis Laboratory Tests Test 03/23/20 05:40 White Blood Count 10.0 K/UL (4.8-10.8) Red Blood Count 4.06 M/UL (4.70-6.10) L Hemoglobin 10.8 G/DL (14.2-18.0) L Hematocrit 33.4 % (42.0-52.0) L Mean Corpuscular Volume 82 FL (80-99) Mean Corpuscular Hemoglobin 26.7 PG (27.0-31.0) L Mean Corpuscular Hemoglobin Concent 32.5 G/DL (32.0-36.0) Red Cell Distribution Width 15.9 % (11.6-14.8) H Platelet Count 490 K/UL (150-450) H Mean Platelet Volume 5.8 FL (6.5-10.1) L Neutrophils (%) (Auto) 66.3 % (45.0-75.0) Lymphocytes (%) (Auto) 24.5 % (20.0-45.0) Monocytes (%) (Auto) 6.9 % (1.0-10.0) Eosinophils (%) (Auto) 1.4 % (0.0-3.0) Basophils (%) (Auto) 0.9 % (0.0-2.0) D-Dimer 6.98 mg/L FEU (0.00-0.49) H Sodium Level 140 MMOL/L (136-145) Potassium Level 4.5 MMOL/L (3.5-5.1) Chloride Level 106 MMOL/L (98-107) Carbon Dioxide Level 26 MMOL/L (21-32) Anion Gap 8 mmol/L (5-15) Blood Urea Nitrogen 9 mg/dL (7-18) Creatinine 0.7 MG/DL (0.55-1.30) Estimat Glomerular Filtration Rate > 60 mL/min (>60) Glucose Level 90 MG/DL (74-106) Calcium Level 8.8 MG/DL (8.5-10.1) Troponin I 0.000 ng/mL (0.000-0.056) Pro-B-Type Natriuretic Peptide 68 pg/mL (0-125) Thyroid Stimulating Hormone (TSH) 0.425 uiU/mL (0.358-3.740) Free Thyroxine 2.16 NG/DL (0.76-1.46) H Plan Problems: (1) Dehydration (2) ISAURO (acute kidney injury) (3) Hydronephrosis (4) Cellulitis of scrotum (5) Paraplegia (6) Fistula (7) Hydroureter (8) Abdominal abscess (9) Hydrocele (10) CKD (chronic kidney disease) (11) Complicated UTI (urinary tract infection) (12) Suprapubic catheter dysfunction Assessment & Plan: s/p replacement functional uti abx as per ID will follow with recs thank you Right testicle: The right testicle measures 3.2 x 1.7 x 2.5 cm. No intrinsic testicular abnormalities. Flow within the testicles. No torsion. Left testicle: Left testicle measures 3.7 x 1.7 x 2.8 cm. Epididymides: Bilateral epididymides are unremarkable. Scrotum: Small right hydroceles. There is diffuse are scrotal wall thickening with intrascrotal fluid collection inferior to the penis in the area of the raphae septum. Increased vascularity is noted. Lymph nodes: Bilateral inguinal lymph nodes which appear prominent. Other findings: Findings are worrisome for abscess collection. Early Yamini's gangrene cannot be excluded. IMPRESSION: 1. Findings most suggestive of abscess collection within the scrotum posterior and inferior to the penis. Clinical correlation is advised to 2. Early Yamini's gangrene cannot be excluded. 3. Flow to both testicles noted. 4. No intrinsic testicular abnormality is noted. 5. Prominent inguinal lymph nodes. 6. Small right hydrocele. (13) Tachycardia (14) Sepsis (15) Scrotal abscess Assessment & Plan: s/p I&D in ED dressings saturated and will need local care will follow with recs thank you dressings TID and prn with gauze still significant edema will take time to subside serous drainage from wound noted. patient believed it to be urine tho unlikely. will monitor Liver: Diffuse fatty infiltration of the liver is noted with fatty sparing about the round ligament. The liver and the spleen enhance uniformly. Gallbladder and bile ducts: The gallbladder is in a semi-contracted state. No calcified stones. No ductal dilation. Pancreas: See below. Spleen: See above. Adrenals: The adrenal glands, the head, body, tail of the pancreas are unremarkable per Kidneys and ureters: Both kidneys are shown to excrete contrast bilaterally, left kidney more so than the right kidney. Moderate right hydronephrosis. Right suprapubic bladder catheter is noted in place with tip located within the distal right ureter causing obstruction of the right ureter and right hydronephrosis. Left kidney is unremarkable without hydronephrosis. Stomach and bowel: Presumed ingested material in the stomach. Moderate quantity of stool throughout the colon. No evidence of bowel obstruction could No evidence of bowel obstruction. Diverticulosis without diverticulitis appeared PELVIS: Appendix: The appendix is seen on axial image 59 and is unremarkable. Bladder: Unremarkable. No mass. Reproductive: Diffuse wall thickening of the left scrotum. At the inferior aspect of the left scrotum there is suggestion of a 3.1 x 2.2 x 2.8 cm abscess collection. Clinical correlation is advised. ABDOMEN and PELVIS: Intraperitoneal space: Unremarkable. No free air. No significant fluid collection. Bones/joints: Mild to moderate osteoarthritic changes about the sacroiliac joints. Alignment of the thoracolumbar spine is unremarkable. The sacrum and coccyx are unremarkable. No acute fracture. Soft tissues: There is extensive stranding about the lower anterior abdominal wall particularly left of midline where there is a 5.3 x 1.5 cm subcutaneous fluid collection. Cellulitis and abscess collection cannot be excluded and clinical correlation is advised. Vasculature: IVC filter is noted in place. Flow is demonstrated within the celiac, SMA, the renal arteries, and ARMANI. No abdominal aortic aneurysm. Lymph nodes: Unremarkable. No enlarged lymph nodes. IMPRESSION: 1. There is a suprapubic bladder catheter noted in place with its tip located in the distal right ureter causing right hydronephrosis and right hydroureter. 2. Inflammatory changes about the lower anterior abdominal wall particularly left of midline with there appears to be an abscess collection. 3. Extensive inflammation surrounding the left hemiscrotum with an prominent abscess collection suggested inferiorly. Clinical correlation is advised. (16) Complicated UTI and Scrotal Abscess/ Cellulitis Mickey Goldman Mar 23, 2020 13:17
[2020-03-23] MEDS: D5 1/2NS 1,000 ML IV SCH (13:20)
--- NOTE | 2020-03-23 13:38 | Cardiac Electrophysiology PN ---
Assessment/Plan Assessment/Plan 1. Sinus tachycardia. No evidence of atrial fibrillation. Refused Echo. Ruled out for CT 2. Suprapubic catheter infection. Patient is already on broad-spectrum IV antibiotics. He was already evaluated by Urology with Dr. Adames. 3. Abdominal pain, likely due to suprapubic catheter. 4. Dehydration. 5. Hydronephrosis. DC tele Subjective Subjective Alert in NAD. No CP or SOB. Still has bloody urine Objective Last 24 Hour Vital Signs Date Time Temp Pulse Resp B/P (MAP) Pulse Ox O2 Delivery O2 Flow Rate FiO2 03/23/20 09:00 Room Air 03/23/20 08:24 97.7 70 18 107/71 (83) 98 03/23/20 04:00 113 03/23/20 00:00 78 03/22/20 21:00 Room Air 03/22/20 20:00 85 03/22/20 20:00 96.4 80 17 112/64 (80) 100 03/22/20 16:00 85 03/22/20 16:00 97.9 91 20 98/57 (71) 98 Intake and Output 03/22/20 03/23/20 19:00 07:00 Intake Total 560 ml 480 ml Balance 560 ml 480 ml Intake Oral 360 ml 480 ml Other 200 ml # Voids 2 Laboratory Tests Test 03/23/20 05:40 White Blood Count 10.0 K/UL (4.8-10.8) Red Blood Count 4.06 M/UL (4.70-6.10) L Hemoglobin 10.8 G/DL (14.2-18.0) L Hematocrit 33.4 % (42.0-52.0) L Mean Corpuscular Volume 82 FL (80-99) Mean Corpuscular Hemoglobin 26.7 PG (27.0-31.0) L Mean Corpuscular Hemoglobin Concent 32.5 G/DL (32.0-36.0) Red Cell Distribution Width 15.9 % (11.6-14.8) H Platelet Count 490 K/UL (150-450) H Mean Platelet Volume 5.8 FL (6.5-10.1) L Neutrophils (%) (Auto) 66.3 % (45.0-75.0) Lymphocytes (%) (Auto) 24.5 % (20.0-45.0) Monocytes (%) (Auto) 6.9 % (1.0-10.0) Eosinophils (%) (Auto) 1.4 % (0.0-3.0) Basophils (%) (Auto) 0.9 % (0.0-2.0) D-Dimer 6.98 mg/L FEU (0.00-0.49) H Sodium Level 140 MMOL/L (136-145) Potassium Level 4.5 MMOL/L (3.5-5.1) Chloride Level 106 MMOL/L (98-107) Carbon Dioxide Level 26 MMOL/L (21-32) Anion Gap 8 mmol/L (5-15) Blood Urea Nitrogen 9 mg/dL (7-18) Creatinine 0.7 MG/DL (0.55-1.30) Estimat Glomerular Filtration Rate > 60 mL/min (>60) Glucose Level 90 MG/DL (74-106) Calcium Level 8.8 MG/DL (8.5-10.1) Troponin I 0.000 ng/mL (0.000-0.056) Pro-B-Type Natriuretic Peptide 68 pg/mL (0-125) Thyroid Stimulating Hormone (TSH) 0.425 uiU/mL (0.358-3.740) Free Thyroxine 2.16 NG/DL (0.76-1.46) H Microbiology Date/Time Source Procedure Growth Status 03/21/20 18:50 Blood Blood Culture - Preliminary NO GROWTH AFTER 24 HOURS Resulted 03/21/20 18:40 Blood Blood Culture - Preliminary NO GROWTH AFTER 24 HOURS Resulted 03/21/20 18:55 Skin Gram Stain - Final Resulted 03/21/20 18:55 Wound Culture - Preliminary Gram Negative Lev Staphylococcus Species Strep Species, Gamma-Hemolytic Resulted 03/21/20 18:55 Nasopharynx SARS-CoV-2 RdRp Gene Assay - Final Complete 03/21/20 18:55 Indwelling Cath Urine Culture - Preliminary NO GROWTH AFTER 24 HOURS Resulted Objective HEAD AND NECK: no JVD. LUNGS: Clear. CARDIOVASCULAR: Shows regular S1 and S2 with no gallop. ABDOMEN: Soft. Has suprapubic catheter. EXTREMITIES: No pitting edema. He is paraplegic. GENITOURINARY: His left scrotum has pus coming from the skin. Abraham Naidu MD Mar 23, 2020 13:38
--- NOTE | 2020-03-23 14:35 | NUR ---
NURSE NOTES:WOUND CARE NOTES:Pt presented on admission with multiple Pressure Injuries, S/P I and D of Scrotal abscess. Scrotal wound is alfredo ,moist with Biofilm, an area of yellow slough (5%)centrally. Periwound scrotum is erythematous. Small amt non-odorous seropurulent exudate noted. Full thickness tunneled wound L Ischium(L)1.5cm x (W)1cm x (D)1.3cm. Accurate evaluation of base of wound is not appreciated secondary to size and shape of wound. (+) Epibole edges with maceration periwound . No odor or exudate noted. No erythema, induration, or changes in skin temp noted.Pt stated he has had wound for over 1 year Resolving Pressure injury L Lateral malleolus. Dry,pink epithelial noted at base of wound. Dry, peeling skin periwound. Resolving Pressure Injury L Heel. Scattered loose dry eschar with [place] epithelial noted to L heel. Resolving Pressure Injury R Heel. Base of Wound is 25% dry eschar,75% Mixed slough and erythema. Edges adherent to base of wound . NO erythema or fluctuance periwound. Interventions: Pt educated on wound prevention. Pt encouraged to frequently shift and off-lift while sitting up in w/c.Pt noted to have Gel Foam cushion with Coccyx support. Pt advised to consider getting cushion with Ischial support . New order from for Mupirocin on to Scrotal wound. In addition pt provided with Scrotal support. Tx.Plan: Cleanse Scrotal wound with Saline. Apply Mupirocin 2% oint . Cover with Gauze BID. Apply Scrotal support. Cleanse L Ischial wound with Saline. Apply TheraHoney. Apply Cavilon Skin Barrier Periwound. Cover with Optifoam drsg. Change every 3 days and prn. Cleanse R heel wound with Saline.Apply TheraHoney. Apply [place]ilon Skin Barrier periwound. Cover with Optifoam Drsg. Change every 3 days and prn. Apply Cavilon Skin Barrier to L Heel. Cover with Optifoam drsg. Change every 7 days and prn. Encourage pt to frequently,or at least hourly, shift and off-lift weight while sitting in his w/c.
[2020-03-23 16:00] VITALS: BP 109/57
--- NOTE | 2020-03-23 16:05 | NUR ---
CASE MANAGEMENT: 03/23/20 SEE INTERQUAL...CRITERIA MET
--- NOTE | 2020-03-23 16:05 | NUR ---
INSURANCE [employer] AND [employer] FAXED TO [employer] [employer] T:[phone] F: [phone] REF # [id number]
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
[2020-03-23] MEDS ORDERED: Omnipaque-300 100ml vial INJ PRN (17:30)
[2020-03-23] MEDS ORDERED: Morphine Sulfate 2mg/ml Inj(IV/IM USE ONLY) IVP PRN (17:37)
[2020-03-23] MEDS ORDERED: D5 1/2NS 1,000 ML IV SCH (17:37)
[2020-03-23] MEDS ORDERED: Piperacillin/Tazobactam 3.375 GM in NS 110 ML IVPB SCH ×4 (18:00)
[2020-03-23] MEDS ORDERED: Aluminum Hydroxide Gel Susp 15ml ORAL PRN (18:00)
--- NOTE | 2020-03-23 18:04 | NUR ---
NURSE NOTES: Received patient from JONAH Bell from telemetry. Patient was receive via wheel chair AAOx4, patient is independent when on wheel chair. IV site noted, but patient refused to have it checked by RN. Patient is noted to be paraplegic from waist below with a suprapubic catheter draining gege urine color. Patient came in unit in stable condition, refusing to get vital signs as well as having his wounds assessed and taken pictures of. Belongings checked and signed by both nurses. Patient's Mom dropped off a lawn sprinkler servicer with an adapter that is believed to be a e-cig, but it is not confirmed on the floor, per JONAH Bell patient has it at bedside and that's what the lawn sprinkler servicer is for. RN called security to come in to room to show patient that the cigarette brought by the mother was not allowed to be given to patient. Patient got upset, became aggressive and non-compliant and verbalized he wants to leave AMA .Patient was instructed to not leave against medical advise due to medical condition that needs more treatment, but patient still refused and was firm with decision. RN notified charge nurse and made Primary (Thad) aware that patient wants to leave AMA. Per Dr. Oneil patient is okay to leave AMA, but does not want to discharge patient because he is septic. IV was discontinued by patient, patient left floor on wheel chair.
--- NOTE | 2020-03-23 18:15 | NUR ---
AMA: SEE AMA FORM.
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
== END 2020-03-23 18:15 | disposition left against medical advice (07) | DRG 720 ==
LOC: EMR 19:20 → 2E 20:20 → EDBEDREQ 03-22 00:19 → 2E 03-22 17:00 → 4E 03-23 17:36
PROC: 0V95XZZ Drainage of Scrotum, External Approach (ICD-10-PCS; principal; 2020-03-21)
PROC: 0T2BX0Z Change Drainage Device in Bladder, External Approach (ICD-10-PCS; 2020-03-21)
DX: A41.9 Sepsis, unspecified organism (principal); T83.020A Displacement of cystostomy catheter, initial encounter; Y84.6 Urinary catheterization as the cause of abnormal reaction of the patient, or of later complication, without mention of misadventure at the time of the procedure; N17.9 Acute kidney failure, unspecified; N49.2 Inflammatory disorders of scrotum; E46 Unspecified protein-calorie malnutrition; Z68.1 Body mass index [BMI] 19.9 or less, adult; G82.20 Paraplegia, unspecified; N39.0 Urinary tract infection, site not specified; N31.9 Neuromuscular dysfunction of bladder, unspecified; L02.211 Cutaneous abscess of abdominal wall; V89.2XXS Person injured in unspecified motor-vehicle accident, traffic, sequela; N13.39 Other hydronephrosis; N18.9 Chronic kidney disease, unspecified; Z20.828 Contact with and (suspected) exposure to other viral communicable diseases; N43.3 Hydrocele, unspecified; Z99.3 Dependence on wheelchair
CPT/HCPCS: 36415; 71045; 74177; 76870; 80048; 80053; 81003; 82553; 83605; 83690; 83735; 83880; 84100; 84439; 84443; 84484; 85025; 85379; 85610; 85730; 86850; 86900; 86901; 87040; 87070; 87081; 87086; 87181; 87205; 93005; 96361; 96365; 96367; 96375; 97803; 99291; 99292; J2405; J7030; S0077; U0002